=== PATIENT | male | born 1930 | race Caucasian/White ===

== ENCOUNTER 2017-03-29 17:00 | Inpatient (IN) | payer MEDICARE, OTHER ==
[~2017-03-29] VITALS: Ht 177.8 cm; Wt 77.7 kg
--- NOTE | ~2017-03-29 | CON ---
PATIENT'S NAME: KATHARINE BURGER [facility] AGE: 87 Y [address] ROOM: [place] [address] LOCATION: [facility] ADMIT DATE: 03/30/2017 Consultation DISCHARGE DATE: FAMILY PHYSICIAN: Pj Cole ATTENDING PHYSICIAN: Neville Dill DATE OF CONSULTATION: 03/31/2017 REFERRING PHYSICIAN: ELISA WILKERSON MD INFECTIOUS DISEASE CONSULTATION REFERRING PHYSICIAN: Dr. Dill. REASON FOR CONSULTATION: Possible T2-3 diskitis and osteomyelitis. HISTORY OF PRESENT ILLNESS: This is an 87-year-old gentleman with history of atrial fibrillation, chronic kidney disease, diabetes, hypertension, prostate cancer, hypertension, hyperlipidemia, has had some upper back pain for 2 to 3 months, which is getting worse. Denied any trauma or injury, although had some fall several times and was evaluated by Dr. Dill, and with some suspicion for diskitis had a biopsy and culture were done yesterday and then started on IV vancomycin and ciprofloxacin after surgery. The patient denied any fever. Complained of back pain. Denied any numbness or weakness in the lower extremities. Denied any burning on urination. No cough, cough of mucus, no chest pain, no abdominal pain. ID consultation requested for possible disk infection. PAST MEDICAL HISTORY: Atrial fibrillation, chronic kidney disease, diabetes, hypertension, prostate cancer, hyperlipidemia. CURRENT MEDICINES: Antibiotic nieto started on IV vancomycin and Cipro since 2 days ago. ALLERGIES: PENICILLIN CAUSING SEVERE REACTION, WHICH REQUIRED HOSPITALIZATION AT THAT TIME. FAMILY HISTORY: Negative for heart disease. SOCIAL HISTORY: Ex-smoker. PATIENT'S NAME: KATHARINE [facility]GER [facility] AGE: 87 Y [address] ROOM: [address] [address] LOCATION: [facility] ADMIT DATE: 03/30/2017 Consultation DISCHARGE DATE: FAMILY PHYSICIAN: Pj Cole ATTENDING PHYSICIAN: Neville Dill REVIEW OF SYSTEMS: As per HPI. PHYSICAL EXAMINATION: VITAL SIGNS: Blood pressure 146/65, pulse rate 71, respirations 18, temperature 98.3. GENERAL: In mild distress. HEENT: Conjunctivae pink. Sclerae not icteric. NECK: Supple. LUNGS: Clear to auscultation bilaterally. HEART: Regular rhythm and rate. ABDOMEN: Bowel sounds positive. No tenderness or rebound tenderness. BACK AND EXTREMITIES: Upper back has a severe significant tenderness. SKIN: No rash. NEURO: No confusion. LABORATORY DATA: White blood cells 8.0, hemoglobin 8.3, platelet 109. ESR is 81. BUN 27, creatinine 1.3. LFT is okay. CRP is 11.70, normal is less than 0.9. UA done today, positive pyuria, and back tissue aspiration culture done on March 30, 2017, pending. Gram stain, no organisms noted. ASSESSMENT AND PLAN: This is an 87-year-old gentleman with significant T2-3 area pain for 3 months, concern for diskitis or osteomyelitis, and also possible tumor, status post culture and biopsy done on March 30, 2017. Culture is pending. The patient had a penicillin allergy with severe reaction in the past. Also noted to have elevated ESR and CRP too. RECOMMENDATIONS: We will continue IV vancomycin. Pharmacy to dose, and we will change Cipro to Levaquin for dosing convenience, and we will follow culture, and we will follow pathology exam. If culture is positive, then needs 6 to 8 weeks of IV antibiotics. If culture is negative for pathology, positive for inflammation that we would recommend to treat as an empiric treatment for diskitis, and we will follow urine culture too. ID will see in 1 week. If any questions, please give us call at [phone]. So far now, we will continue IV vancomycin, and we will continue levofloxacin p.o. 750 mg every 48 hours. LISA SANTOS MD PATIENT'S NAME: KATHARINE [facility]GER [facility] AGE: 87 Y [address] ROOM: [address] [address] LOCATION: [facility] ADMIT DATE: 03/30/2017 Consultation DISCHARGE DATE: FAMILY PHYSICIAN: Pj Cole ATTENDING PHYSICIAN: Neville Dill/mely /[id number] d: 04/01/17 0234 t: 04/01/17 1119, CONSULTATION REPORT
--- NOTE | ~2017-03-29 | OR ---
PATIENT'S NAME: KATHARINE BURGER [facility] AGE: 87 Y [address] ROOM: [address] [address] LOCATION: [facility] ADMIT DATE: 03/30/2017 OR/Procedure Report DISCHARGE DATE: FAMILY PHYSICIAN: Pj Cole ATTENDING PHYSICIAN: Neville Dill SURGEON: Neville Dill MD LABOR RELATIONS SPECIALIST: DATE OF PROCEDURE: 03/30/2017 PREOPERATIVE DIAGNOSES: 1. Osteomyelitis T2. 2. Diskitis T2-T3 disc space. 3. Query tumor T2 vertebral body. OPERATION PROPOSED AND PERFORMED: 1. Stealth neuronavigation. 2. Transpedicular biopsy of T2 vertebral body. 3. Culture and sensitivity of the lesion in the T2 vertebral body. 4. Biopsy of T2 vertebral body using the stealth neuronavigational system, transpedicular biopsy to stealth neuronavigation system. 5. Specimens taken for culture and sensitivity using the correct biopsy needle for the biopsy and flushing through the needle for some of the culture sensitivity. DESCRIPTION OF PROCEDURE: Under general anesthesia, the patient was positioned prone. The neck and upper thorax were prepped and draped in the usual fashion. A midline linear incision was then carried out extending from the spinous process of T1-T3. The fascia was incised on either side of the midline and the paraspinal muscles were reflected from the lamina of T1-T2-T3 bilaterally. The O-arm clamp was then put on T1 spinous process. We then scanned the patient and this showed that we were covered where we wanted to be. Next, the patient was registered and scanned and after this was done, we then identified the entry point on the left side of the T2 pedicle and on the stealth neuronavigational system of the O-arm, we used the pedicle finder to advance through the pedicle to the vertebral body and following that, we then used the drill and tap also through the pedicle to the vertebral body using the neuronavigational system, the O-arm and after this, we then got the Booker needle tapped it through the hole we had created into the vertebral body and we were able to get specimens that way. After we had achieved this, we then went ahead and got Q-tips, which we passed through the pedicle to the vertebral body and used that for culture. Cultures both aerobic and anaerobic. Then we irrigated the Booker needle and sent the fluid for culture and sensitivity and Gram stain. After we had done this, we then gave the patient 1 g of vancomycin and 400 mg of Cipro IV. The wound was then irrigated with bacitracin irrigation and closed in layers. First the fascia, PATIENT'S NAME: KATHARINE BURGER [facility] AGE: 87 Y [address] ROOM: [place] [address] LOCATION: [facility] ADMIT DATE: 03/30/2017 OR/Procedure Report DISCHARGE DATE: FAMILY PHYSICIAN: Pj Cole ATTENDING PHYSICIAN: Neville Dill the subcutaneous tissue, and finally the skin. The patient tolerated the procedure well and was taken to the recovery room. MD PRASANNA HOLLEY/mely /[id number] d: 03/30/17 2147 t: 04/18/17 1609, OPERATIVE SUMMARY
--- NOTE | ~2017-03-29 | CON ---
PATIENT'S NAME: KATHARINE BURGER [facility] AGE: 87 Y [address] ROOM: [place] [address] LOCATION: [facility] ADMIT DATE: 03/30/2017 Consultation DISCHARGE DATE: FAMILY PHYSICIAN: Pj Cole ATTENDING PHYSICIAN: Neville Dill REFERRING PHYSICIAN: ELISA WILKERSON MD CHIEF COMPLAINT: Back pain. HISTORY OF PRESENT ILLNESS: An 87-year-old gentleman with a past medical history of prostate cancer, status post radiation treatment; chronic kidney disease; multiple urinary tract infections in the past; history of paroxysmal atrial fibrillation, on oral anticoagulation, presented to the outside facility about 2 weeks ago with back pain. Imaging studies were undertaken, which did reveal a possibility of a tumor in the back. There was also some concern about diskitis and osteomyelitis. He was referred here for a 2nd opinion. He was admitted under neurosurgical care. Today, imaging-guided biopsy of the concerned area has been undertaken. On my encounter, he is complaining of back pain. He denied any headache, any dizziness, any trouble with the eyes, any chest pain, any shortness of breath, any abdominal pain, but did endorse having leg swelling. REVIEW OF SYSTEMS: All other systems were reviewed and were negative except what is mentioned in the HPI. PAST MEDICAL HISTORY: 1. Chronic atrial fibrillation, on long-term anticoagulation with Coumadin for a long time. 2. Chronic kidney disease, stage 3. 3. Type 2 diabetes mellitus. 4. Hypertension. 5. History of DVTs, on long-term anticoagulation with Coumadin. 6. Prostate cancer, status post radiation treatment. 7. Anemia of chronic disease. 8. Osteoarthritis. 9. Generalized hypertension. 10. Hyperlipidemia. 11. Gastroesophageal reflux disease. 12. Questionable history of parkinsonism. 13. Recurrent urinary tract infections. CURRENT MEDICATIONS: Please see MAR. PATIENT'S NAME: KATHARINE BURGER [facility] AGE: 87 Y [address] ROOM: [place] [address] LOCATION: [facility] ADMIT DATE: 03/30/2017 Consultation DISCHARGE DATE: FAMILY PHYSICIAN: Pj Cole ATTENDING PHYSICIAN: Neville Dill FAMILY HISTORY: Negative for heart disease or stroke. SOCIAL HISTORY: He is a . Lives by himself in a house he built himself. Distant history of smoking. He uses a cane at home to be around. PHYSICAL EXAMINATION: VITAL SIGNS: Today show blood pressure 114/55, respiratory rate of 16, pulse of 63, and temperature of 98.5. GENERAL: In no acute distress. Alert and oriented x3. HEENT: Head: Atraumatic, normocephalic. Eyes: Nonicteric. No pallor. Oropharynx: Moist mucous membranes. CARDIOVASCULAR: Irregular, variable S1, normal S2. No murmurs, gallops, or rubs. LUNGS: Clear to auscultation bilaterally. ABDOMEN: Soft, nontender, nondistended. Bowel sounds are present. EXTREMITIES: +2 extremity edema bilaterally. SKIN: Biopsy site covered with surgical dressing. Sacral decubitus ulcer present on admission. LAB WORK: Done showed blood glucose level of 204 on Accu-Check. Serum creatinine level, which was done yesterday, was 1.3 with a GFR of 52. CURRENT MEDICATIONS: 1. Coumadin. 2. Vancomycin. 3. Terazosin. 4. Polyethylene glycol. 5. Multivitamins. 6. Megestrol acetate. 7. Pantoprazole. 8. Glipizide 2.5 mg daily. 9. Sertraline 50 mg q.h.s. 10. Metoprolol 25 mg b.i.d. p.o. 11. Lovastatin 20 mg h.s. 12. Lisinopril 20 mg b.i.d. 13. Ciprofloxacin. 14. Sinemet. 15. Bicalutamide. 16. Percocet. 17. Morphine. ASSESSMENT/PLAN: PATIENT'S NAME: KATHARINE BURGER [facility] AGE: 87 Y [address] ROOM: [place] [address] LOCATION: [facility] ADMIT DATE: 03/30/2017 Consultation DISCHARGE DATE: FAMILY PHYSICIAN: Pj Cole ATTENDING PHYSICIAN: Neville Dill 1. Type 2 diabetes, on glipizide, well controlled at this point. I would recommend using the glipizide and starting a sliding scale insulin to have more control of the blood glucose levels as well as avoiding hypoglycemia. 2. Chronic kidney disease. Given that he is getting IV vancomycin at this point, we will be watchful of the creatinine levels. 3. Atrial fibrillation, currently in atrial fibrillation with controlled ventricular rates. I would recommend starting Coumadin as soon as possible. 4. Deep venous thrombosis. We would recommend starting Coumadin as soon as possible per Neurosurgery. 5. Hypertension, stable at this point. Continue home medications. 6. Anemia of chronic disease. 7. Hyperlipidemia. 8. Gastroesophageal reflux disease. 9. Diskitis/osteomyelitis. Currently, on Cipro and vancomycin. Infectious Disease consultation had been obtained, and they have switched the medication to the Levaquin and vancomycin. Further determination of the antibiotics will be done based on the cultures. If cultures were to be negative and per ID recommendation, it will be treated with vancomycin and ciprofloxacin. 10. The patient is a DNR/DNI. MD MARYAM GHOTRA/mely /[id number] d: 03/31/17 2301 t: 04/01/17 0929, CONSULTATION REPORT
--- NOTE | ~2017-03-29 | DS ---
PATIENT'S NAME: KATHARINE BURGER [facility] AGE: 87 Y [address] ROOM: [id number] [place], [place] [address] [place] [facility] [place]: 03/30/2017 Discharge Summary DISCHARGE DATE: 04/10/2017 FAMILY PHYSICIAN: Pj Cole ATTENDING PHYSICIAN: Neville Dill HOSPITAL COURSE: This is an 87-year-old male, who was admitted with a primary complaint of severe upper thoracic pain with no radicular component to the pain and no gross weakness of his upper or lower extremities. Referable to the pain, investigations were carried out included an MRI of his thoracic spine. It did show some hyperintense lesions in the body of T2 and also in the T2-T3 disk space. The relevant portion of his past medical history, he did have a history of CA of the prostate, and also that he has had a history of falls recently. He was consequently brought into the hospital to determine whether what we were seeing at T2 was a tumor, and if it was then he will be back to Dr. Mesa for subsequent radiation. The other alternative there was whether this was diskitis with accompanying osteomyelitis. He was taken to the operating room day after he arrived in the hospital and had a transpedicular biopsy and culture of the T2 vertebral body. This was carried out using the O-arm and stealth, and the tissues were then sent to the path lab as well as to the laboratory for cultures. The cultures came back negative. The pathology also did not show any evidence of tumor. There was almost suggestive of a previous hemorrhage. However, I did not expect this to involve the disk space itself. He was seen in consultation by Infectious Disease consultants, who felt that this could also possibly be diskitis. He was put on vancomycin and Cipro immediately after the biopsy was done. The Cipro was discontinued, and he was put on Levaquin in addition by the Infectious Disease consultants. Eventually, the Levaquin was also discontinued especially as cultures did not grow any organisms, and he was left on only vancomycin. Plan was to continue treating him with vancomycin empirically. He did feel better. We were able to get him out of bed and get him ambulatory. He did have quite a bit of incisional pain and spasms. He was given some antispasm medications primarily Valium, which did give him some relief. He was also seen in consultation by Dr. Cabrera, who felt that he was a candidate for rehab, and while he was in the hospital, he has been taken care of by the hospitalist group. Later on, he developed urinary incontinence, and as a result of this, he was seen by Dr. Bonner of the urology service, who felt that the part of his problem was the fact that he was not circumcised, and that he will need to be circumcised, so he was taken to the operating room by Dr. Bonner and had a circumcision done. He was eventually transferred to the rehab unit. At which time, his pain had not completely subsided but was getting better. FINAL DIAGNOSES: 1. Query diskitis. PATIENT'S NAME: KATHARINE BURGER [facility] AGE: 87 Y [address] ROOM: [place] [address] [place] [facility] [place]: 03/30/2017 Discharge Summary DISCHARGE DATE: 04/10/2017 FAMILY PHYSICIAN: Pj Coel ATTENDING PHYSICIAN: Neville Dill 2. Compression fractures at T2. MD PRASANNA HOLLEY/mely /[id number] d: 04/19/17 0201 t: 05/06/17 1444, DISCHARGE SUMMARY
--- NOTE | ~2017-03-29 | CON ---
PATIENT'S NAME: KATHARINE BURGER [facility] AGE: 87 Y [address] ROOM: [place] [address] LOCATION: [facility] [place] ADMIT DATE: 03/30/2017 Consultation DISCHARGE DATE: FAMILY PHYSICIAN: Pj Cole ATTENDING PHYSICIAN: Neville Dill DATE OF CONSULTATION: 04/03/2017 REFERRING PHYSICIAN: ELISA WILKERSON MD HISTORY OF PRESENT ILLNESS: The patient is an 87-year-old male, admitted secondary to severe back pain. The patient has significant past history of prostate cancer, status post radiation therapy, and multiple urinary tract infections. Reason for consultation is persistent urinary incontinence which the patient reports has been present for the past 2 years. The patient apparently has seen Dr. Lopez in the past and now sees Dr. Locke for his prostate cancer. The patient has been treated with Lupron injections and currently is on Casodex. Again, he complains of persistent urinary incontinence with persistent dribbling. Because of this, the patient wears diapers. With his persistent dribbling, I do not believe anticholinergic medications would work. I discussed a possibility of placing a permanent Rose catheter. PAST MEDICAL HISTORY: Significant for chronic atrial fibrillation; renal insufficiency, stage 3; type 2 diabetes; hypertension; history of DVT; prostate cancer, again status post radiation therapy; anemia; osteoarthritis; hypertension; hyperlipidemia; GERD; and recurrent urinary tract infections. MEDICATIONS: 1. Casodex. 2. Coumadin. 3. Hytrin. 4. Florastor. 5. Lopressor. 6. Megace. 7. Mevacor. 8. MiraLAX. 9. Zestril. 10. Protonix. 11. Sinemet. 12. Welchol. 13. Zoloft. SOCIAL HISTORY: The patient is a nonsmoker, but has a distant history of smoking in the past. PATIENT'S NAME: KATHARINE BURGER [facility] AGE: 87 Y [address] ROOM: [place] [address] LOCATION: [facility] [place] ADMIT DATE: 03/30/2017 Consultation DISCHARGE DATE: FAMILY PHYSICIAN: Pj Cole ATTENDING PHYSICIAN: Neville Dill No history of alcohol abuse. REVIEW OF SYSTEMS: Significant for hypertension, abdominal pain, joint and back pain. PHYSICAL EXAMINATION: GENERAL: An elderly male, lying in bed. Complains of significant discomfort with movement. EYES: Extraocular motion intact. LUNGS: Clear bilaterally. CARDIAC: Irregular rhythm. ABDOMEN: Soft, nontender, and normoactive bowel sounds throughout. NEURO: Grossly intact. : The patient has a buried phallus with a small opening that actually accesses the accessory bladder. When squeezed, urine squirts out. 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 PLAN: We will take to OR in the future for dilatation and possible circumcision revision to correct his buried penis. MD YAMILEX LANGE/mely /[id number] d: 04/04/176 t: 04/06/17 1512, CONSULTATION REPORT
--- NOTE | ~2017-03-29 | CON ---
PATIENT'S NAME: KATHARINE BURGER [facility] AGE: 87 Y [address] ROOM: [place] [address] LOCATION: [facility] ADMIT DATE: 03/30/2017 Consultation DISCHARGE DATE: FAMILY PHYSICIAN: Pj Cole ATTENDING PHYSICIAN: Neville Dill DATE OF CONSULTATION: 03/31/2017 REFERRING PHYSICIAN: ELISA WILKERSON MD A consult for Dr. Dill. This is an 87-year-old gentleman, who lives alone and takes care of his own needs, is now status post; 1. Stealth neuronavigation. 2. Transpedicular biopsy of T3 body. 3. Culture and sensitivity of T3 lesion. 4. Biopsy of T3 vertebral body. 5. Taking biopsy specimen for culture and sensitivity using a correct needle for biopsy and pushing through the needle done on 03/30/2017, details on record with the diagnosis as following;. a. Osteomyelitis of T2. b. Diskitis T2-3 space. c. Query (?) tumor of the T3. MEDICAL HISTORY: 1. CA prostate with radiation and followup. 2. Chronic kidney disease. 3. UTI, multiple, on and off. 4. Paroxysmal atrial fibrillation. 5. Chronic back pain. 6. Hypertension. 7. History of DVT. 8. Anemia of chronic disease. 9. Osteoarthritis. 10. Dyslipidemia. 11. Reflux gastric disease. 12. Questionable Parkinson. PHYSICAL EXAMINATION: GENERAL: At the present time alert, oriented x3, hard of hearing. VITAL SIGNS: Blood pressure 140/58, temperature 98.1, pulse 74, and respirations 16. He is 5 feet and 10 inches and weighs 77.7 kg. NEURO: He can follow instructions well. Cranial nerves II through XII are within normal limits. Can move all 4 well. Muscle strength is about 4- to 4/5 throughout. Good bowel and bladder control. Deep tendon reflex 1+ PATIENT'S NAME: KATHARINE BURGER [facility] AGE: 87 Y [address] ROOM: [address] [place] [id number] LOCATION: [facility] ADMIT DATE: 03/30/2017 Consultation DISCHARGE DATE: FAMILY PHYSICIAN: Pj Cole ATTENDING PHYSICIAN: Badejo,Neville E throughout. Babinski is equivocal. MEDICATIONS: He is on the following medications: 1. Coumadin. 2. Fentanyl. 3. Insulin aspartate, mild scale. 4. Glucagon. 5. Dextrose. 6. Glucose. 7. NaCl 0.9%. 8. Vancomycin. 9. Levaquin. 10. Hytrin. 11. MiraLax. 12. Theravite. 13. Megace. 14. Welchol. 15. Protonix. 16. Zoloft. 17. [place]-3. 18. Metoprolol. 19. Mevacor. 20. Lisinopril. 21. Carbidopa. 22. Casodex. 23. Percocet. 24. Morphine sulfate. 25. Fentanyl. 26. Glipizide. 27. Cipro. He can ambulate at best at the present time about 45 feet x2 with contact guard assist; minimal assistance, slow; and keeps his head down with bent forward gait. I believe this gentleman would benefit from intensive rehabilitation of about 2 to 3 weeks. Aiming to discharge him on modified independent and follow on outpatient basis. We will take him as soon as we have an opening. Thank you for this referral. All the above was explained to him in detail. He verbalized understanding and in agreement. PATIENT'S NAME: KATHARINE BURGER [facility] AGE: 87 Y [address] ROOM: [place] [address] LOCATION: [facility] ADMIT DATE: 03/30/2017 Consultation DISCHARGE DATE: FAMILY PHYSICIAN: Pj Cole ATTENDING PHYSICIAN: Neville Dill MD LAURIE SIMPSON/lawrencel /[id number] d: 04/01/171904 t: 04/03/17 0850, CONSULTATION REPORT
--- NOTE | ~2017-03-29 | OR ---
PATIENT'S NAME: KATHARINE BURGER [facility] AGE: 87 Y [address] ROOM: [place] [address] [place] [facility] [place] DATE: 03/30/2017 OR/Procedure Report DISCHARGE DATE: FAMILY PHYSICIAN: Pj Cole ATTENDING PHYSICIAN: Neville Dill SURGEON: Dayday Kuhn MD [employer] WARRANTY ADMINISTRATOR: DATE OF PROCEDURE: 04/07/2017 PREOPERATIVE DIAGNOSIS: 1. Buried penis. 2. Urinary incontinence. POSTOPERATIVE DIAGNOSIS: 1. Buried penis. 2. Urinary incontinence. PROCEDURE PERFORMED: Circumcision revision. ANESTHESIA: General mask. COMPLICATIONS: None. INDICATION FOR PROCEDURE: The patient is an 87-year-old male complaining of urinary incontinence for the past two years. On physical examination, he is noted to have a buried penis with a very tight opening. This resulted in fluid retention around his buried penis. DETAILS OF PROCEDURE: After informed consent was obtained, the patient was taken to the operating room. He was placed in a supine position. A general mask anesthetic applied. The groin area was prepped and draped in normal sterile fashion. I then used a Indu clamp to dilate the scarred tissue, at which point I could visualize his buried penis. I continued dilatation. I then performed a dorsal slit which allowed me to retract the skin to be on back of the glans. I then reapproximated the skin with interrupted 3-0 chromic sutures in a vertical mattress fashion. Once this was completed, the incision was dressed with antibiotic ointment and gauze. The patient tolerated his procedure well and was transferred to recovery room in good condition. DAYDAY KUHN MD PATIENT'S NAME: KATHARINE BURGER [facility] AGE: 87 Y [address] ROOM: [place] [address] LOC[place]: [facility] [place]MIT DATE: 03/30/2017 OR/Procedure Report DISCHARGE DATE: FAMILY PHYSICIAN: Pj Cole ATTENDING PHYSICIAN: Neville Dill/lawrencel /[id number] CC: MICHAEL Peacock d: 04/07/17 1601 t: 04/27/17 1442, OPERATIVE SUMMARY
[~2017-03-29 17:00] MED LIST: ACETAMINOPHEN650 M2 PO; B&O 60MG SUPPOS60 MG R; CASODEX50 MG PO; CENTRUM SILVER1 TAB PO; CORTENEMA100 MG/60 R; COUMADIN ** IA5 MG PO; COUMADIN **IA2.5 MG PO; CPAP INH; DURAGESIC 25MC25 MCG TOP; FISH OIL300 MG PO; FLOMAX0.4 MG PO; GLUCAGON/GLUCAGE1 MG SUB-Q; GLUCOSE1 EACH PO; GLUCOTROL XL2.5 MG PO; HYDROCHLOROTH12.5 M1; HYTRIN **IA 9/2 MG PO; LANTUS100 UNIT/1 SUB-Q; LASIX20 M1 PO; LOMOTIL 2.5-0.1 EACH PO; LOPRESSOR50 MG PO; LOVASTATIN20 MG PO; MEGACE40 MG PO; MEGESTROL ACETA20 MG PO; MIRALAX17 GM PO; NORCO 5-325 TA1 EACH PO; NORVASC10 MG PO; NOVOLOG100 UNIT/M SUB-Q; PRILOSEC20 MG PO; PROCERA PO; SINEMET 25-1001 EACH PO; ULTRAM50 MG PO; WELCHOL 625MG625 MG PO; ZESTRIL10 MG PO; ZESTRIL40 MG PO; ZOLOFT50 MG PO
[2017-03-30 19:30] LABS: CREATININE 1.2 mg/dL (0.6-1.3)
--- NOTE | 2017-03-31 02:47 | NUR ---
Shift Summary: Patient complains of pain with any movement or being touched and at rest. Gave two norco at a time. Has had a couple doses of 2mg Morphine IV. Patient has multiple skin problems. Skin tear to left lower arm. Purple, non-blanching skin to right buttock surrounded by red blanchable skin. Bruises to arms. Red skin to tip of toes. Excoriated skin to scrotum with skin breakdown. WOC to see patient. Reinforced saturated dressing to cervical spine. Patient continously urinates. Wearing a brief. Incontinent of small BM at beginning of shift. Refused all of his nightime meds. Able to swallow pills whole without difficulty. Wore his CPAP while sleeping.
[2017-03-31 06:15] LABS: CREATININE 1.3 mg/dL (0.6-1.3)
--- NOTE | 2017-03-31 10:00 | NUR ---
Introduced self/role to patient and his daughter Ruthie whom lives out of state. Plan is for patient to return home to [place]. They have [facility] coming Wednesday-Wednesday. Currently working on getting a hospital bed for home, just need to chart picker the script from the doctor. Family have been staying with him. Feeling like they may need to hire some additional help. Provided her a list of personal care duty providers in this area. At this time she could not think of any other needs. Has all the other DME already. Added my name to the marker board, will continue to follow.
[2017-03-31 15:51] LABS: BASOPHIL % 0.1 %; EOSINOPHIL # 0.1 K/uL (0.0-0.5); EOSINOPHIL % 1.8 %; HEMATOCRIT 27.3 % (33.0-50.0); HEMOGLOBIN 8.3 g/dL (11.0-16.0); IMMATURE GRANULOCYTE # 0.1 K/uL (0.0-0.3); IMMATURE GRANULOCYTE % 0.9 %; LYMPHOCYTE # 0.8 K/uL (0.8-4.0); LYMPHOCYTE % 10.1 %; MCH 29.5 pg (27.0-34.0); MCHC 30.4 gm/dL (32.0-36.5); MCV 97.2 fl (83.0-98.0); MONOCYTE # 0.7 K/uL (0.0-1.0); MPV 10.6 fl (9.4-12.4); NEUTROPHIL # (ANC) 6.2 K/uL (1.4-9.0); NEUTROPHIL % 78.1 %; NRBC % 0 /100WBC (0-0.00); PLATELET COUNT 109 K/uL (150-450); RBC 2.81 M/uL (3.50-5.50); RDW-CV 15.8 % (11.9-14.6)
[2017-03-31 16:12] LABS: ALK PHOS 63 IU/L (33-138); ANION GAP 11.9 (10.0-19.0); AST 16 IU/L (10-40); BLOOD UREA NITROGEN 27 mg/dL (6-24); CALCIUM 7.5 mg/dL (8.5-10.5); CHLORIDE 109 mMol/L (96-110); CO2 22 mMol/L (22-32); CREATININE 1.3 mg/dL (0.6-1.3); ESTIMATED GFR (MDRD EQUATION) 52; POTASSIUM 4.9 mMol/L (3.7-5.1); SODIUM 138 mMol/L (135-145); TOTAL BILIRUBIN 0.3 mg/dL (0.0-1.5); TOTAL PROTEIN 5.3 g/dL (6.0-8.4)
[2017-03-31 16:18] LABS: ALBUMIN 1.9 gm/dL (3.5-5.0); ALT < 10 IU/L (12-78)
--- NOTE | 2017-03-31 17:12 | NUR ---
Significant Event: Pt has been in generalized pain most of the day, especially with movement. Percocet given @ 1630 for 6/10 pain. CSM checks WNL. Pt needs to be re-oriented to place and time. Incontinent of urine and BM. +2 pitting edema to bilateral lower extremities. 1+ edema to left hand. Pressure ulcer to rt buttocks. Excoriated scrotum, alovesta cream applied. Skin tear to left forearm, see integumentary assessment for further details. Incision to upper midline spine with theresa intact. Dressing changed today, clean dry and intact. Pt to be turned and brief changed q2h. Follow up: Pain and repositioning.
--- NOTE | 2017-03-31 18:38 | NUR ---
Duragesic patch intact to rt chest
--- NOTE | 2017-03-31 19:00 | NUR ---
I reviewed and approve of charting by Jeffy Garrison RN
--- NOTE | 2017-04-01 04:04 | NUR ---
Shift Summary: Patient is a two assist to ambulate short distance. Last percocet was at 2008. Patient takes pills whole, 2-3 at a time. Dressing to upper back is free from drainage. Patient has continous dribbling incontinent urine. Scrotum excoriated. Has good appetite when fed by his daughter. Wears CPAP at night. Edema to upper legs.
[2017-04-01 06:10] LABS: BASOPHIL % 0.1 %; EOSINOPHIL # 0.1 K/uL (0.0-0.5); EOSINOPHIL % 1.9 %; HEMATOCRIT 25.4 % (33.0-50.0); IMMATURE GRANULOCYTE % 0.6 %; LYMPHOCYTE % 14.7 %; MCV 97.3 fl (83.0-98.0); MONOCYTE # 0.7 K/uL (0.0-1.0); MONOCYTE % 10.2 %; MPV 10.8 fl (9.4-12.4); NEUTROPHIL # (ANC) 4.8 K/uL (1.4-9.0); NEUTROPHIL % 72.5 %; NRBC % 0 /100WBC (0-0.00); RBC 2.61 M/uL (3.50-5.50); RDW-CV 15.9 % (11.9-14.6); WBC 6.7 K/uL (4.0-11.0)
[2017-04-01 06:12] LABS: HEMOGLOBIN 7.7 g/dL (11.0-16.0); MCH 29.5 pg (27.0-34.0); MCHC 30.3 gm/dL (32.0-36.5); PLATELET COUNT 85 K/uL (150-450)
[2017-04-01 06:20] LABS: INR - (THERAPEUTIC) 1.03 (0.92-1.07); PROTIME 10.8 SECONDS (9.8-11.4)
[2017-04-01 06:22] LABS: ANION GAP 12.6 (10.0-19.0); BLOOD UREA NITROGEN 23 mg/dL (6-24); CALCIUM 7.6 mg/dL (8.5-10.5); CHLORIDE 112 mMol/L (96-110); CO2 21 mMol/L (22-32); CREATININE 1.1 mg/dL (0.6-1.3); ESTIMATED GFR (MDRD EQUATION) > 60; POTASSIUM 4.6 mMol/L (3.7-5.1); SODIUM 141 mMol/L (135-145)
--- NOTE | 2017-04-01 12:15 | NUR ---
Left a message for Keren on GIRP inquiring about beds. 1230 Met with daughter in the office. Student Perfume Maker also present Sherry. Her family upset her and she needed some encouragement and emotional support. She stated he has always been very independent and a "self made man". When GIRP assessed him today he thought they were talking about a long term. He then wanted out of here. Daughters goal is to get dad better then back home. He has the resources to hire help. She would like her brother to come and explained GIRP to patient denise. If [facility] isn't an option due to bed then [facility] might work. Patient was just there, she talked to a Day today. Daughter isn't sure how many days he has. She stated they may consider if the IV was BID but probably not if it was once a day. Cultures still pending so won't know medication regimen for awhile. Gave her emotional support. Can make referral to [facility] once we better know his medical plan and needs. Let her know I was off tomorrow but someone else would be following. She left for lunch and some time to herself. She has the support of her daughter, explained she needed to take care of herself too. We won't discharge her dad until we have a safe plan.
--- NOTE | 2017-04-01 16:22 | NUR ---
Significant Event: PT ALERT. UP IN THE RECLINER THIS SHIFT. RETURNED TO BED AFTER LUNCH. INC OF URINE X 2. SMALL BM. IV VANCO INFUSING PER MIDLINE IN RT UPPER ARM. EVALUATED FOR GIRP TODAY. NO BEDS AT THIS TIME. TAKES MEDS WHOLE WITH LIQUID. IV SALINE LOCKED DRESSING TO NECK INTACT. ATE 50% OF MEALS BY SELF. Follow up:
--- NOTE | 2017-04-02 04:35 | NUR ---
Patient is alert and can be forgetful/confused at times, dressing to spine is clean dry and intact, has pain with movement, has rested well tonight, repositioned and changed q2 hours, is constantly incontinent, scrotum is very excoriated and red needs barrier cream applied frequently, also has a sore to right buttock that also need barrier cream, 2 assist for all transfers and repositioning, has NACL running at 40ml/hr, BG was 227 so recieved 2 units of insulin, plans to go to rehab when availble, needs a urology consult and a swallowing study had trouble with pm pills.
[2017-04-02 06:17] LABS: BASOPHIL % 0.2 %; EOSINOPHIL # 0.2 K/uL (0.0-0.5); EOSINOPHIL % 2.7 %; HEMATOCRIT 25.3 % (33.0-50.0); IMMATURE GRANULOCYTE # 0.1 K/uL (0.0-0.3); IMMATURE GRANULOCYTE % 0.9 %; LYMPHOCYTE # 1.2 K/uL (0.8-4.0); LYMPHOCYTE % 18.4 %; MCH 29.3 pg (27.0-34.0); MCHC 30.8 gm/dL (32.0-36.5); MCV 95.1 fl (83.0-98.0); MONOCYTE # 0.6 K/uL (0.0-1.0); MONOCYTE % 8.6 %; MPV 10.9 fl (9.4-12.4); NEUTROPHIL # (ANC) 4.4 K/uL (1.4-9.0); NEUTROPHIL % 69.2 %; NRBC % 0 /100WBC (0-0.00); PLATELET COUNT 93 K/uL (150-450); RBC 2.66 M/uL (3.50-5.50); RDW-CV 15.8 % (11.9-14.6); WBC 6.4 K/uL (4.0-11.0)
[2017-04-02 06:21] LABS: HEMOGLOBIN 7.8 g/dL (11.0-16.0)
[2017-04-02 06:41] LABS: ESTIMATED GFR (MDRD EQUATION) > 60
--- NOTE | 2017-04-02 14:04 | NUR ---
Significant Event: PT ALERT BUT CONFUSED AT TIMES. UP WITH PHYSICAL THERAPY TO AMBULATE IN THE ROOM. SMALL BM THIS SHIFT. CONT TO BE INC OF URINE. BLADDER SCAN SHOWED 38CC THIS AM. PERCOCET GIVEN AT 1349 FOR PAIN. DRESSING TO NECK INTACT. DAUGHTER HERE AND HELPED THE PT EAT. AWAITING PLACEMENT. Follow up:
--- NOTE | 2017-04-02 18:52 | NUR ---
Significant Event: took over patient care at 1445. patient repositioned to r) side at 1700 with 2 assist, heels elevated off bed with pillows. had vanco trough prior to 1600 dose of vancomycin. daughter at bedside. Follow up:
--- NOTE | 2017-04-03 05:52 | NUR ---
Significant Event: Dressing has small drainage. CSM WNL. Incontinent of urine. Repositioned. Pecocet at 0329. On room air. Refused CPAP. Accu check. [facility] vs [place] [facility]. Hypertensive, but better now. Follow up:
[2017-04-03 06:08] LABS: CREATININE 0.9 mg/dL (0.6-1.3); ESTIMATED GFR (MDRD EQUATION) > 60
[2017-04-03 13:10] LABS: INR - (THERAPEUTIC) 1.68 (0.92-1.07); PROTIME 17.7 SECONDS (9.8-11.4)
--- NOTE | 2017-04-03 14:52 | NUR ---
A-SCREENED D/T LOS ADMITTED FOR DISKITIS T2-T3 DISK SPACE, OSTEOMYELITIS T2, QUERY OF TUMOR AT T2. HT: 70 IN. WT: 77.7 KG. BMI: 24.5 LABS: NA 141, K+ 4.6, GLU 86, BUN 23, ROUTE INSPECTOR 0.9, ALB 1.9, CRP 11.7 MEDS: MVI, MEGACE, PROTONIX, SINEMET, VANCOMYCIN, LEVAQUIN, MIRALAX, PERCOCET, DILAUDID, DURAGESIC, NOVOLOG (MILD SS). DIET RX: REGULAR. PO INTAKE 50%. PER RN CHARTING, PT DOES BETTER WITH DAUGHTER HELPING TO FEED HIM. PT USES WEIGHTED SILVERWARE. VISITED W/ PT AND PT'S DAUGHTER. PT REPORTS THAT HIS APPETITE IS OK. WHEN ASKED IF HE TAKES NUTRITION SUPPLEMENTS AT HOME (BOOST OR ENSURE), PT REPORTS THAT HE HAS A CASE OF BOOST AT HOME, BUT HE HAS NOT TRIED IT. PT WAS AGREEABLE TO TRYING CHOCOLATE ENSURE BID. PT'S DAUGHTER ASKED IF HE COULD HAVE ONE NOW, PT HAS NOT FELT LIKE EATING LUNCH. A CHOCOLATE ENSURE WAS GIVEN TO THE PT FROM THE [facility]. EST NUTR NEEDS: 4489-7545 KCALS (25-30 KCALS/KG) 78-85 GM PROTEIN (1.0-1.1 GM/KG) 1 ML FLUID/KCAL D-AT NUTRITION RISK W/INDEQUATE ORAL INTAKE AT TIMES R/T POOR APPETITE, RECENT SURGERY AEB INTAKE RECORDS, PT AND FAMILY REPORT. I-START CHOCOLATE ENSURE ENLIVE BID AT BRK AND LUNCH M/E-GOAL: PO INTAKE OF MEALS AND SUPPLEMENT >/=50% BY NEXT F/U 1)F/U PO INTAKE, SUPPLEMENT, AND POC IN 3-5 DAYS 2)ASSIST NEEDED
--- NOTE | 2017-04-03 16:41 | NUR ---
Significant Event: Pt transfered from 3N around 1545. 2 assist with ambulation to br. Has a swollen penis/scrotum. Red groin and red spot upper right buttock. Dressing to upper back d/i. Midline to right arm. Follow up:
--- NOTE | 2017-04-03 17:29 | NUR ---
Significant Event: Pt Aox3, confused at times. VSS, CSM WNL. Neuro WNL. IV to right upper arm, midline, intact. Up with two assist. Reposition q 2 hr, apply moisture barrier. Elevate heels. Percocet for pain. Takes PO well, needs weighted silverware. Incontinent of urine. Dr. Bonner to do procedure on wednesday. Encourage activity, IS, CDB&T. Neck dressing has small amt of drainage. Follow up:
[2017-04-04 05:56] LABS: BASOPHIL % 0.2 %; EOSINOPHIL # 0.2 K/uL (0.0-0.5); EOSINOPHIL % 2.6 %; HEMATOCRIT 25.5 % (33.0-50.0); IMMATURE GRANULOCYTE % 0.7 %; LYMPHOCYTE % 16.9 %; MCH 29.7 pg (27.0-34.0); MCHC 31.4 gm/dL (32.0-36.5); MCV 94.8 fl (83.0-98.0); MONOCYTE # 0.3 K/uL (0.0-1.0); MONOCYTE % 4.8 %; MPV 11.2 fl (9.4-12.4); NEUTROPHIL # (ANC) 4.5 K/uL (1.4-9.0); NEUTROPHIL % 74.8 %; NRBC % 0 /100WBC (0-0.00); PLATELET COUNT 95 K/uL (150-450); RBC 2.69 M/uL (3.50-5.50); RDW-CV 15.9 % (11.9-14.6)
[2017-04-04 06:03] LABS: INR - (THERAPEUTIC) 1.63 (0.92-1.07); PROTIME 17.2 SECONDS (9.8-11.4)
[2017-04-04 06:07] LABS: ANION GAP 12.2 (10.0-19.0); BLOOD UREA NITROGEN 13 mg/dL (6-24); CALCIUM 7.8 mg/dL (8.5-10.5); CHLORIDE 114 mMol/L (96-110); CO2 20 mMol/L (22-32); CREATININE 0.9 mg/dL (0.6-1.3); ESTIMATED GFR (MDRD EQUATION) > 60; MAGNESIUM 1.5 mg/dL (1.8-2.6); POTASSIUM 4.2 mMol/L (3.7-5.1); SODIUM 142 mMol/L (135-145)
--- NOTE | 2017-04-04 06:58 | NUR ---
Significant Event: Pt Up with 2 assist. Periarea excoriated and needs briefs changed q 2 hours. Skin tear protocol to left forearm. Dressing to posterior neck intact. Percocet given x 2 with the last dose at 0600 this morning. VSS, afebrile. Midlide IV to right arm saline locked. TAkes pills well with just water. Cont IV Vanco. Follow up: Nickolas coles on in AM.
--- NOTE | 2017-04-04 16:10 | NUR ---
Significant Event: Pt c/o intermittent neck pain, percocet last given around 1330 with some relief. Dressing to neck/back d/i. Up with 1 assist to the br. Scrotum/penis continue to be swollen and generalized swelling noted throughout body. Up in chair x2. Pt is in AFIB/irregular heartbeat. Skin tear left arm and has a pink/purple spot to right upper buttock. Follow up:
--- NOTE | 2017-04-05 04:48 | NUR ---
Significant Event: Patient alert and oriented X3, forgetful at times. Vitals stable and on room air. Incision to upper back covered with island dressing, shadow drainage noted. Midline to R) upper arm saline locked with intermittent vanco. ADA diet. ACHS accuchecks. Up with 1-2 person assist, walker and gait belt. PT/OT on board. Fentanyl patch to L) chest. INtact. Aloev esta to buttocks and groin. Incontinenet at times. BM this shift. Refused miralax. 1 tab percocet last at 0355. Relief noted. Very delicate skin. Skin tear to L) arm. CHange every day. GIRP when bed is available. Follow up: Monitor pain
[2017-04-05 06:18] LABS: BASOPHIL % 0.2 %; EOSINOPHIL # 0.2 K/uL (0.0-0.5); EOSINOPHIL % 3.3 %; HEMATOCRIT 25.6 % (33.0-50.0); IMMATURE GRANULOCYTE % 0.5 %; LYMPHOCYTE # 0.9 K/uL (0.8-4.0); LYMPHOCYTE % 15.9 %; MCH 29.5 pg (27.0-34.0); MCHC 31.3 gm/dL (32.0-36.5); MCV 94.5 fl (83.0-98.0); MONOCYTE # 0.3 K/uL (0.0-1.0); MONOCYTE % 5.4 %; MPV 11.2 fl (9.4-12.4); NEUTROPHIL # (ANC) 4.3 K/uL (1.4-9.0); NEUTROPHIL % 74.7 %; NRBC % 0 /100WBC (0-0.00); PLATELET COUNT 94 K/uL (150-450); RBC 2.71 M/uL (3.50-5.50); RDW-CV 15.9 % (11.9-14.6); WBC 5.8 K/uL (4.0-11.0)
[2017-04-05 06:27] LABS: INR - (THERAPEUTIC) 1.49 (0.92-1.07); PROTIME 15.7 SECONDS (9.8-11.4)
--- NOTE | 2017-04-05 08:20 | NUR ---
Left a message for Keren on inpatient rehab asking if they would have bed for this patient this week? 1040 Spoke with Yane Vega, thinking patient would be ready for discharge after procedure on Wednesday with Dr. Bonner. 1135 Followed up with patients daughter. She is doing much better then the end of last week. She was also under the impression discharge could be on . Gave her a quick little tour of [facility] even though we do not have acceptance yet. She wanted to see where it was located. She is aware I have not heard back from [facility] if they can even take yet.
--- NOTE | 2017-04-05 16:19 | NUR ---
Significant event: Up to chair with one assist. Needs 2 assist to stand and then gait is steady. Incontinent of urine. Had moderate BM today. Refuses to wear CPAP, reports it does not fit him when he lays down. dressing to back dry and intact. Percocet once for pain, new med orders received. [place] area red, aloe vesta applied redness to lower back noted also. Daughter at bedside. patient is alert and oriented.
--- NOTE | 2017-04-06 03:32 | NUR ---
Significant Event: Patient alert and oriented X4. Forgetful at times. Hard of hearing. Reposition every 2 hours. Buttocks/groin red from inconinence. Mod BM this shift. Orders to hold [address] Doherty because no blood return in midline. Consult [facility] nurse in AM for possible placement. ACHS accuchecks. valium given around 2155. 2 norco given about 0010. Relief noted. 1-2 person assist when up. Pneumatics on. Island dressing to upper back with shadow drainage noted. Skin tear to L) forearm. Fent patch to L) chest. Edema in legs noted. GIRP when bed is open. Follow up: Monitor pain
[2017-04-06 06:08] LABS: BASOPHIL % 0.2 %; EOSINOPHIL # 0.2 K/uL (0.0-0.5); EOSINOPHIL % 4.5 %; HEMATOCRIT 24.3 % (33.0-50.0); IMMATURE GRANULOCYTE % 0.6 %; LYMPHOCYTE # 1.2 K/uL (0.8-4.0); LYMPHOCYTE % 21.6 %; MCH 29.2 pg (27.0-34.0); MCHC 30.5 gm/dL (32.0-36.5); MONOCYTE # 0.4 K/uL (0.0-1.0); MONOCYTE % 6.5 %; MPV 11.1 fl (9.4-12.4); NEUTROPHIL # (ANC) 3.6 K/uL (1.4-9.0); NEUTROPHIL % 66.6 %; NRBC % 0 /100WBC (0-0.00); PLATELET COUNT 92 K/uL (150-450); RBC 2.53 M/uL (3.50-5.50); RDW-CV 16.1 % (11.9-14.6); WBC 5.4 K/uL (4.0-11.0)
[2017-04-06 06:11] LABS: HEMOGLOBIN 7.4 g/dL (11.0-16.0)
[2017-04-06 06:16] LABS: INR - (THERAPEUTIC) 1.4 (0.92-1.07); PROTIME 14.7 SECONDS (9.8-11.4)
[2017-04-06 06:26] LABS: ANION GAP 12.3 (10.0-19.0); BLOOD UREA NITROGEN 16 mg/dL (6-24); CALCIUM 7.9 mg/dL (8.5-10.5); CHLORIDE 113 mMol/L (96-110); CO2 22 mMol/L (22-32); ESTIMATED GFR (MDRD EQUATION) > 60; MAGNESIUM 1.5 mg/dL (1.8-2.6); PHOSPHORUS 2.7 mg/dL (2.5-4.9); POTASSIUM 4.3 mMol/L (3.7-5.1); SODIUM 143 mMol/L (135-145)
[2017-04-06 06:27] LABS: ALBUMIN 1.8 gm/dL (3.5-5.0)
--- NOTE | 2017-04-06 17:32 | NUR ---
Significant event: PICC line placed this am to left upper arm. Up to BR. Incontinent of bowel and bladder. Urine drips from penis when he stands. Permit signed for surgery for tomorrow for possible circumcision. daughter at bedside. [place] at 1445. Valium at 0837. accuchecks 110,156,160 no insulin needed.
--- NOTE | 2017-04-07 04:32 | NUR ---
Significant Event:PT IS A/O X3. PT HAS ISLAND DRESSING TO MIDLINE UPPER BACK WHICH HAS SOME SHADOW DRAINAGE. PT RECIEVED NORCO X1 @ 2118. PT HAS FENT PATCH TO LEFT CHEST. PICC LINE TO L UPPE ARM HAS GOOD BLOOD RETURN. PT IS NPO FOR POSSIBLE CIRCUMCISION. CONSENTS SIGNED AND PREOP CHECKLIST ON CHART. PT HAS SKIN TEAR TO L LOWER ARM WITH DRESSING. BOTTOM HAS CLOSED REDDENED AREA. PT IS INCONT OF URINE AND BOWELS. EDEMA TO LEGS, KATE HOSE OFF AT NIGHT ON DURING THE DAY WITH SCD'S. ACCUCHECKS AC/HS, BS WAS 143. PT IS A 1-2 ASSIST W/ WALKER. NEEDS MORE HELP ACTUALLY STANDING UP BUT WALKS PRETTY GOOD. NEED TO HELP REPOSITION PT FREQUENTLY. Follow up:POSSIBLE SURGERY TODAY
[2017-04-07 05:42] LABS: ANION GAP 13.3 (10.0-19.0); BLOOD UREA NITROGEN 18 mg/dL (6-24); CALCIUM 7.9 mg/dL (8.5-10.5); CHLORIDE 111 mMol/L (96-110); CO2 23 mMol/L (22-32); CREATININE 1.1 mg/dL (0.6-1.3); ESTIMATED GFR (MDRD EQUATION) > 60; MAGNESIUM 1.8 mg/dL (1.8-2.6); PHOSPHORUS 2.8 mg/dL (2.5-4.9); POTASSIUM 4.3 mMol/L (3.7-5.1); SODIUM 143 mMol/L (135-145)
[2017-04-07 05:51] LABS: ALBUMIN 1.9 gm/dL (3.5-5.0)
[2017-04-07 06:02] LABS: INR - (THERAPEUTIC) 1.23 (0.92-1.07); PROTIME 12.9 SECONDS (9.8-11.4)
--- NOTE | 2017-04-07 10:05 | NUR ---
Spoke to Keren on GIRP. Can accept on Wednesday if stable to come. 1140 Let charge nurse Judy know this. 1440 Updated daughter and left a note on the chart.
--- NOTE | 2017-04-07 15:45 | NUR ---
A - NUTRITION FOLLOW-UP. OR TODAY, STILL DROWSY FROM PROCEDURE, NOT ABLE TO VISIT. NO FAMILY MEMBER IN ROOM W/ PT. EDEMA TO LEGS PER SHIFT REPORT. WT STABLE. LABS: GLU 106, ALB 1.9, CRP 5.02. MEDS: DILAUDID, VALIUM. ON MEGACE. DIET: REGULAR W/ ENSURE ENLIVE BID. INTAKE 20% X9 MEALS. EST NEEDS: [id number] KCAL, 78-85 GRAMS PROTEIN, FLUID NEEDS: 1ML/KCAL D - INADEQUATE ORAL INTAKE RELATED TO DECREASED APPETITE EVIDENCED BY 20% X9 MEALS. I - WILL CONTINUE W/ ENSURE ENLIVE BID. CONTINUE TO ENCOURAGE ORAL INTAKE. MIGHT NEED NUTRITION SUPPORT IF APPETITE DOES NOT IMPROVED. M/E - GOAL: PT WILL BE ABLE TO TOLERATE >50% OF MEALS AND AT LEAST ONE ORAL SUPPLEMENT PER DAY IN 2-4 DAYS.
--- NOTE | 2017-04-07 18:56 | NUR ---
Significant Event: PT A/O. VSS ON RA, AFEBRILE. AMBULATES WITH 1PA, GAITBELT AND WALKER. THERAPY SHOWERED THIS AM. PICC TO TIM, GOOD BLOOD RETURN, SALINE LOCKED. CONTINUES ON IV VANCO. DRESSING TO POSTERIOR NECK INTACT, CHANGED DAILY. HAZARDOUS DRUG PRECAUTIONS. ACHS ACCUCHECKS, NO SSI NEEDED. PRN NORCO X1 AT 1711. HAD CIRCUMCISION REVISION TODAY, VASOLINE TO PENIS, SCROTUM RED, EDEMATOUS. HAS OPEN AREA TO R BUTTOCK. SKIN TEAR TO R ARM, DRESSING INTACT. DAUGHTER AT BEDSIDE, HELPFUL WITH CARES. PLAN IS TO REHAB WHEN READY. Follow up: MONITOR SURGICAL SITE, MONITOR NECK DRESSING
--- NOTE | 2017-04-08 05:33 | NUR ---
Significant Event: Patient alert and oriented. Up with 1-2 assist. Incontient of urine. Circumcision with sutures intact. Scrotum red. Rested well throughout shift. VSS on room air. Pleasant and cooperative with cares Follow up:continue
[2017-04-08 05:41] LABS: INR - (THERAPEUTIC) 1.12 (0.92-1.07); PROTIME 11.8 SECONDS (9.8-11.4)
[2017-04-08 05:46] LABS: CREATININE 1.1 mg/dL (0.6-1.3); ESTIMATED GFR (MDRD EQUATION) > 60
--- NOTE | 2017-04-08 11:10 | NUR ---
As requested meet patients daughter in patients room. Had some questions about GIRP and what to bring. Will find out and follow up with her. Spoke to Smiley on GIRP about what to bring. 1125 Followed up with patient and daughter. Instructed to bring 3-4 pairs of clothes and they will wash his clothes at night. Toiletries will be provided unless they have a brand preference. Inc products will be provided. Need to bring sturdy shoes and electric razor. She had no additional questions. Gave her a GIRP pamphlet. GIRP Wednesday around 0900. Confirmed with Keren Pleitez. Family, patient and doctor aware of discharge plans.
--- NOTE | 2017-04-08 17:18 | NUR ---
Cooperative with cares. Up w/1 assist, AGUSTIN, walker with slow steady gait. Stitches from circumcision intact; scrotum edematous and shiny. Continually dribbles urine. Brief on. BM today that smears; poor rectal tone. PICC to TIM s/l'd w/GBR. Tolerating regular diet well. Prefers cream of wheat for bfast. Daughter present most of day. Transferring to [facility] on Wednesday morning.Has CPAP but refused to wear it last night. Satting well on room air. VSS, afebrile. C/O back pain 8-07/25. Gave [place] and Dilaudid with relief. Fragile skin with tears.
--- NOTE | 2017-04-09 03:11 | NUR ---
SIGNIFICANT EVENT: Patient alert, oriented. Hard of hearing. Tremors d/t Parkinsons. 1PA with walker to ambulate. Slightly hypertensive - 136 to 147 over 63 to 65, other VSS on RA. Incontinent of urine and stool - 2 voids and 2 stools. Circumcision sutures intact. Scrotum edematous and red - aloe vesta to scrotum and sacral areas. Pleasant and cooperative with cares.
[2017-04-09 05:52] LABS: HEMATOCRIT 23.8 % (33.0-50.0)
[2017-04-09 05:55] LABS: INR - (THERAPEUTIC) 1.08 (0.92-1.07); PROTIME 11.3 SECONDS (9.8-11.4)
[2017-04-09 05:57] LABS: HEMOGLOBIN 7.3 g/dL (11.0-16.0)
[2017-04-09 05:59] LABS: ESTIMATED GFR (MDRD EQUATION) > 60
--- NOTE | 2017-04-09 11:55 | NUR ---
A-NUTRITION F/U NO NEW WT OR LABS. PLAN TO D/C TO [facility] ON 04/10 MEDS: LEVAQUIN, DILAUDID, NORCO DIET RX: REGULAR W/ENSURE ENLIVE BID. USES WEIGHTED SILVERWARE. PO INTAKE HAS IMPROVED SINCE LAST F/U ON 04/07 TO 75-100%. TAKING SUPPLEMENT WELL ALSO. EST NUTR NEEDS: 2934-3452 KCALS AND 78-85 GM PROTEIN D-AT NUTRITION RISK W/RECENT INADEQUATE ORAL INTAKE R/T DECREASED APPETITE AEB INTAKE RECORDS, PT REPORT. I-CONTINUE W/ENSURE ENLIVE BID M/E-GOAL: PO INTAKE >/=75% FOR DURATION OF ADMIT 1)F/U PO INTAKE, SUPPLEMENT, AND POC IN 5-7 DAYS 2)ASSIST NEEDED
--- NOTE | 2017-04-09 16:31 | NUR ---
AAO. Cooperative with cares. Up w/ assist, GB, walker, forward leaning. Showered today. VSS, afebrile, on RA. [place] now scheduled Q4hrs. Parveen to upper thoracic area to be removed on Wednesday by Dr Cancino. Stitches from circumcision intact. Scrotum edematous. Brief on for cotinuous dribbling. Up to chair for afternoon. Open sheared area on upper right buttock. VSS, afebrile, on RA. Refuses to use his CPAP, sats ok. BS ac/hs with mild SSI, no coverage given. Tolerating diet well. Takes pills a few at a time. To transfer to [facility] tomorrow morning. PICC to TIM last/AGUSTINR. Intermittent Vanco.
--- NOTE | 2017-04-10 02:52 | NUR ---
SIGNIFICANT EVENT: Patient alert & oriented. VSS on RA. Regular diet. ACHS accuchecks - Mild SS, no coverage this shift. Plan to transfer to [facility] tomorrow a.m. Dressing R) arm/elbow skin tear changed - petroleum gauze/gauze/wrap with tape to dressing only. PICC to L) UA flushes well, good blood return - no changes to measurments. [place] and Tylenol given as scheduled. Incontinent of bowel/bladder. Q2h turn. Pleasant and cooperative with cares.
[2017-04-10 06:18] LABS: ESTIMATED GFR (MDRD EQUATION) > 60
[2017-04-10 07:09] LABS: INR - (THERAPEUTIC) 1.22 (0.92-1.07); PROTIME 12.8 SECONDS (9.8-11.4)
--- NOTE | 2017-04-10 08:19 | NUR ---
Pt is alert & oriented. Mild htn - 133 to 140 over 63 to 84, other VSS on RA. Daughters present at beginning of shift. Scheduled [place] q6H given through night - pt slept well this shift. ACHS accuchecks - mild SS, no coverage as BG's have been below the 200 threshold for several shifts now. PICC to L) UA flushes well, good blood return - nurse draw. Has CPAP available for HS but refuses. March 30 biopsy and culture of T2 vertebrae - no drainage, open to air. Circumcision site free of redness but scrotum/ramy is red and edematous. Q2h turn - sacral pressure ulcers on admission, healing. To GIRP later this a.m.
--- NOTE | 2017-04-10 12:26 | NUR ---
Significant event: Patient is alert and oriented. VSS. on room air. PICC to left upper arm, with good blood return, saline locked. Takes meds whole, few at a time. Moves slowly, with walker and gaitbelt. Parveen intact to posterior upper back/neck area. Slight redness to lower incision. Scrotum is swollen, and has continous dribbling, wears a pull up pad. Transferred to [facility] by wheelchair. Daughter here and helped to carry belongings. Report given to NABILA Veliz.
== END 2017-04-10 11:50 | disposition other institution (70) | DRG 477 ==
LOC: G3N 03-30 10:32 → GMSU 04-03 15:36
PROVIDERS: Internal Medicine; Internal Medicine Geriatric Medicine; Physician Assistant; Urology; ADMIT Neurological Surgery
PROC: 8E0WXBZ Computer Assisted Procedure of Trunk Region (ICD-10-PCS; principal; 2017-03-30)
PROC: 0PB40ZX Excision of Thoracic Vertebra, Open Approach, Diagnostic (ICD-10-PCS; principal; 2017-03-30)
PROC: 05HB33Z Insertion of Infusion Device into Right Basilic Vein, Percutaneous Approach (ICD-10-PCS; 2017-04-06)
PROC: 0VNSXZZ Release Penis, External Approach (ICD-10-PCS; 2017-04-07)
DX: M46.24 Osteomyelitis of vertebra, thoracic region (principal); G93.40 Encephalopathy, unspecified; E46 Unspecified protein-calorie malnutrition; E11.22 Type 2 diabetes mellitus with diabetic chronic kidney disease; C61 Malignant neoplasm of prostate; I48.0 Paroxysmal atrial fibrillation; I12.9 Hypertensive chronic kidney disease with stage 1 through stage 4 chronic kidney disease, or unspecified chronic kidney disease; D63.1 Anemia in chronic kidney disease; E83.42 Hypomagnesemia; E78.5 Hyperlipidemia, unspecified; M46.44 Discitis, unspecified, thoracic region; G47.33 Obstructive sleep apnea (adult) (pediatric); N18.9 Chronic kidney disease, unspecified; Z66 Do not resuscitate; Z87.440 Personal history of urinary (tract) infections; Z88.0 Allergy status to penicillin; Z87.891 Personal history of nicotine dependence; Q55.64 Hidden penis; N39.498 Other specified urinary incontinence; Z92.3 Personal history of irradiation; K21.9 Gastro-esophageal reflux disease without esophagitis; Z68.24 Body mass index [BMI] 24.0-24.9, adult; Z86.718 Personal history of other venous thrombosis and embolism; Z79.01 Long term (current) use of anticoagulants
CPT/HCPCS: C1751; J0744; J1170; J2001; J2270; J2405; J3010; J3370; J3475; J7030; J7040; J7050; J7060

== ENCOUNTER 2017-04-10 11:44 | Inpatient (IN) | payer MEDICARE, OTHER ==
[~2017-04-10] VITALS: Ht 177.8 cm; Wt 75.1 kg
--- NOTE | ~2017-04-10 | CON ---
PATIENT'S NAME: KATHARINE BURGER [facility] AGE: 87 Y [address] ROOM: [id number] [place], [place] [address] LOCATION: GIRP ADMIT DATE: 04/10/2017 Consultation DISCHARGE DATE: 04/23/2017 FAMILY PHYSICIAN: Pj Cole ATTENDING PHYSICIAN: Constantino Valdez DATE OF CONSULTATION: 04/13/2017 REFERRING PHYSICIAN: Jennifer Che MD Team members reporting include Dr. Valdez; Keren Pleitez, oncology social work; Smiley Pryor, RN; Siobhan Syed, PT; Monique Haile, PT; Myriam Bradford, OT; Kim Ward, Speech Therapy; Sruthi Heath, therapeutic rec; and Sister Soni Dang, Pastoral Care. CURRENT STATUS: Katharine is an 87-year-old man admitted to our inpatient rehab unit with back pain. The patient did have a biopsy and culture of his T2 vertebrae for upper back pain, compression fracture of thoracic vertebra, and diskitis. The patient was found to have osteomyelitis and is currently on IV antibiotics. The patient is incontinent of bladder frequently. He has a blister on his left toe. They continue to monitor his circumcision that was recently done. His skin has broke down on his bottom, and they are putting Aloe [place] cream on it. The patient complains of lots of pain. He has a fentanyl patch and Dilaudid. The patient has a lot of swelling in his legs. We are now going to be wrapping them with Patrice wraps. He is on a regular diet. He needs weighted silverware on all trays. The patient does complain of pain all the time. He needs extra time for all of his transfers. He can transfer sit to supine and supine to sit at minimal assistance; [id number] and stand to sit, contact guard assistance; and bed to chair and chair to bed, contact guard assistance. He can walk 120 to 150 feet with a front-wheeled walker at contact guard assistance. His goals have been set for standby. The patient can dress his upper body at max assistance; lower body, dependent; grooming, max assistance; bathing, moderate assistance; toilet and shower transfers, minimal assistance; and toileting, dependent. The patient is open to pastoral care. DISCHARGE PLAN: The patient is receiving 3 hours of PT and OT Wednesday through Wednesday. The patient has daily rehab, nursing, and physiatry involvement as well as therapeutic recreational services 4 days per week. The patient has shown functional improvement and is progressing. Please see his plan of care for specific goals. Plan is for the patient to discharge in approximately 7 to 10 days. We will likely need to look at a alf facility due to the patient's pain issues. PATIENT'S NAME: KATHARINE B[facility]GER [facility] AGE: 87 Y [address] ROOM: [place] [address] LOCATION: [facility] ADMIT DATE: 04/10/2017 Consultation DISCHARGE DATE: 04/23/2017 FAMILY PHYSICIAN: Pj Cole ATTENDING PHYSICIAN: Constantino Valdez KEREN PLEITEZ FOR CONSTANTINO VALDEZ MD TD/mely /[id number] d: 04/26/17 1346 t: 05/11/17 0811, CONSULTATION REPORT
--- NOTE | ~2017-04-10 | CON ---
PATIENT'S NAME: KATHARINE BURGER [facility] AGE: 87 Y [address] ROOM: G[address]94 [place], [place] [address] LOCATION: [facility] ADMIT DATE: 04/10/2017 Consultation DISCHARGE DATE: 04/23/2017 FAMILY PHYSICIAN: Pj Cole ATTENDING PHYSICIAN: Constantino Valdez DATE OF CONSULTATION: 04/20/2017 REFERRING PHYSICIAN: Jennifer Che MD Team members reporting include Dr. Valdez; Keren Pleitez, school social worker; Smiley Pryor, RN; Siobhan Syed, PT; Monique Haile, PT; Myriam Bradford, OT; Sruthi Heath, therapeutic rec; and Sister Soni Dang, Pastoral Care. CURRENT STATUS: Katharine is an 87-year-old man, admitted to our inpatient rehab unit with osteomyelitis. The patient is having considerable pain. He has a history of diabetes type 2, Parkinson's, reflux gastric disease, hypertension, carcinoma of the prostate, prostatectomy and status post radiation, DVT, anemia, and depression. The patient is incontinent of bladder frequently. He has a Lidoderm patch as well for pain. The patient is frequently uncomfortable. The patient can transfer sit to supine at contact guard assistance; supine to sit, minimal assistance; [id number]-hd-[id number] and stand to sit, contact guard assistance; and bed to chair and chair to bed, contact guard assistance. He can walk 180 feet with a front wheel walker at close stand-by assistance. He can climb 4 stairs with 2 railings at contact guard assistance. He has met 5/6 short-term PT goals. Complains of 8/10 pain. The patient can dress his upper body at standby; lower body, dependent; grooming, standby; bathing, minimal assistance; toilet and shower transfers, contact guard assistance; and toileting, dependent. The patient has met 3/4 short-term OT goals. Overall, the patient's pain is limiting. He can complete car transfers at contact guard assistance in extra time. The patient has been very open to pastoral care. Overall, the patient's pain is limiting. We continue to watch is Coumadin with his PT and INRs. DISCHARGE PLAN: The patient is receiving 3 hours of PT, OT, Wednesday through Wednesday. The patient has daily rehab, nursing, and physiatry involvement as well therapeutic recreational services 4 days per week. The patient has shown functional improvement and is progressing. Please see his plan of care for specific goals. Plan is for the patient to discharge on April 23, 2017. The patient will be going to [facility] in [place], [place] to continue therapy and his IV antibiotics. PATIENT'S NAME: KATHARINE BURGER [facility] AGE: 87 Y [address] ROOM: [id number] [place] [id number] LOCATION: [facility] ADMIT DATE: 04/10/2017 Consultation DISCHARGE DATE: 04/23/2017 FAMILY PHYSICIAN: Pj Cole ATTENDING PHYSICIAN: Constantino Valdez KEREN PLEITEZ FOR CONSTANTINO VALDEZ MD TD/lawrencel /[id number] d: 04/26/17 1403 t: 05/11/17 0809, CONSULTATION REPORT
--- NOTE | ~2017-04-10 | DS ---
PATIENT'S NAME: KATHARINE BURGER [facility] AGE: 87 Y [address] ROOM: [address] [place] [address] LOCATION: [facility] ADMIT DATE: 04/10/2017 Discharge Summary DISCHARGE DATE: FAMILY PHYSICIAN: Pj Cole ATTENDING PHYSICIAN: Constantino Valedz This 87-year-old gentleman was admitted to rehab unit on 04/10/2017 and is discharged to go to [place] at [facility] in [place], [place], on 04/23/2017. He was put on intensive rehabilitation after he did undergo a surgical procedure on 03/31/[address] Dill for diskitis T2-T3 and query questionable T3 tumor plus osteomyelitis. He was on antibiotics, and Infectious Disease followed on him closely. He is also with chronic renal disease and is at the present time stable, alert, oriented. Vitals are as follows: Blood pressure 141/70, temperature 98.0, pulse 79, respiration rate 16. He is followed with hospitalist/pharmacist with PT and INR. He is on Coumadin. They will renew his Coumadin and the dose. On 04/22, PT is 20.7 and INR 1.96. He can ambulate at best 150 feet with front-wheeled walker slowly and with handheld assistance and supervision closely. He is at the present time on the following medications: 1. Vancomycin 1 g vial in 1500 mg in 0.9 normal saline in 500 mL. 2. [place] 5/325 two tablets q.6 hours as needed. 3. Activase for IV line opening. 4. Casodex 50 mg tablet p.o. daily. 5. Sinemet 25/100 one tablet q.4 times daily. 6. WelChol 625 mg tablet, give 1875 mg twice daily with meals. 7. Duragesic 25 mcg transdermal q.72 hours. 8. Feosol 325 p.o. b.i.d. 9. Lasix 40 mg b.i.d. 10. Levaquin 750 mg p.o. q.48 hours, last dose will be 05/11. 11. Lidoderm 2 patch transdermal daily. 12. Fish oil 3000 mg p.o. twice daily. 13. Protonix 40 mg twice daily. 14. Potassium tablet 20 mEq p.o. daily. 15. Coumadin dose was followed by hospitalist and pharma, please to continue as per their advice. 16. Florastor 250 mg p.o. twice daily. 17. Zoloft 50 mg p.o. at bedtime. 18. Hytrin 2 mg p.o. in the morning. 19. Dulcolax suppository 10 mg rectally p.r.n. PATIENT'S NAME: KATHARINE BURGER [facility] AGE: 87 Y [address] ROOM: [address] [address] LOCATION: [facility] ADMIT DATE: 04/10/2017 Discharge Summary DISCHARGE DATE: FAMILY PHYSICIAN: Pj Cole ATTENDING PHYSICIAN: Constantino Valdez 20. Valium 2.5 mg p.o. 3 times daily as needed. 21. Glucose orally 16 g p.r.n. 22. Dilaudid 0.5 mg p.o. q.2 hours as needed. 23. Milk of magnesia 30 mL p.o. at bedtime. FINAL DIAGNOSES: 1. Unstable gait. 2. Dependent in activities of daily self-care. 3. Status post T2-T3 diskitis with query T3 tumor, surgery done on 03/31/[address] Dill with possible osteomyelitis, on antibiotics, and followed by Infectious Disease. 4. Diabetes, type 2. 5. Parkinson's. 6. Reflux gastric disease. 7. Hypertension. 8. Carcinoma of prostate, prostatectomy, and status post radiation. 9. Deep venous thrombosis per history. 10. Anemia. 11. Depression. The patient is not to drive and/or operate any mechanical device until he is reevaluated. No followup with me. Follow up with Dr. Dill and hospitalist as he sees fit and Dr. Bonner, urologist, as he sees fit. All the above was explained to him in detail. He verbalized understanding and agreement. CONSTANTINO VALDEZ MD WMS/modl /[id number] d: 04/22/171417 t: 04/23/17812, DISCHARGE SUMMARY
--- NOTE | ~2017-04-10 | HP ---
PATIENT'S NAME: KATHARINE BURGER [facility] AGE: 87 Y [address] ROOM: [place] [address] LOCATION: [facility] ADMIT DATE: 04/10/2017 History & Physical DISCHARGE DATE: FAMILY PHYSICIAN: Pj Cole ATTENDING PHYSICIAN: Constantino Cabrear DATE OF SERVICE: HISTORY OF PRESENT ILLNESS: This 87-year-old gentleman is admitted for continuous medical treatment and intensive rehabilitation. 1. Unstable gait. 2. Dependent activities of daily and self-care. 3. Status post T2-T3 diskitis. 4. Query (?) T3 tumor with marked weakness of bilateral lower extremities and falling. He was through surgery on 03/31/2017 as follows. 1. Stealth neuronavigation. 2. Transpedicular biopsy of T3 body. 3. Culture and sensitivity of T3 lesion. 4. Biopsy of T3 vertebral body. 5. Taking biopsies for culture and sensitivity with a curved needle for biopsy, pushing through the needle done on 03/30/2017, details on record. PAST MEDICAL HISTORY: Past history of significance: 1. Also osteomyelitis of T2. 2. Diskitis to T2-T3 space. 3. Query (?) tumor of T3. PAST SURGICAL HISTORY: Past history of significance: 1. CA prostate. 2. Status post radiation. 3. Chronic kidney failure. 4. DVT per history. 5. Dyslipidemia. 6. Osteoarthritis. 7. Hypertension. 8. Reflux gastric disease. 9. Questionable Parkinson. PHYSICAL EXAMINATION: GENERAL APPEARANCE: He is at the present time alert, fairly well oriented, and hard of hearing. PATIENT'S NAME: KATHARINE BURGER [facility] AGE: 87 Y [address] ROOM: [place] [address] LOCATION: [facility] ADMIT DATE: 04/10/2017 History & Physical DISCHARGE DATE: FAMILY PHYSICIAN: Pj Cole ATTENDING PHYSICIAN: Constantino Cabrera VITAL SIGNS: Blood pressure 135/75, temperature 98.1, pulse 80, and respiratory rate 16. He is 5 feet 10 inches tall and weighs 77.7 kg. ALLERGIES: HE IS ALLERGIC TO PENICILLIN. CURRENT MEDICATIONS: He is on the following medications: 1. Vancomycin IV 1 g q.24 hours and this followed with peak and trough. 2. Tylenol Extra Strength 1000 mg twice daily p.o. 3. Casodex 50 mg p.o. daily. 4. Sinemet 25/100, 1 tablet 4 times daily. 5. WelChol 625 mg, give 1875 mg twice daily p.o. with meals. 6. NovoLog insulin sliding scale and subcutaneous before meals and at bedtime. 7. Levaquin 750 mg p.o. q.48 hours. 8. Zestril 20 mg twice daily. Hold if systolic blood pressure is below 110. 9. Lovastatin 20 mg p.o. at bedtime. 10. Mag-Ox 400 give 400 mg p.o. b.i.d. 11. Lopressor 25 mg p.o. twice daily. Hold if systolic blood pressure is below 110. 12. Theravite 1 tablet p.o. daily. 13. Fish oil 3000 mg twice daily p.o. 14. Protonix 40 mg p.o. daily. 15. Florastor 250 mg twice daily. 16. Coumadin 2.5 mg p.o. on Wednesday, Wednesday, and Wednesday, and pharmacy will follow. 17. Coumadin 5 mg p.o. on Sundays, , Fridays, and Saturdays. 18. Zoloft 50 mg p.o. every bedtime. 19. Hytrin 2 mg p.o. in the morning. 20. [place] 5/325, 1 tablet p.o. q.4 hours p.r.n. Do not exceed acetaminophen 4 g q.24 hours. 21. Dextrose 25 mL IV for hypoglycemia p.r.n. 22. Valium 2.5 mg p.o. 3 times daily as needed. 23. Glucagon 1 mg subcutaneous for hypoglycemia p.r.n. 24. Glucose 16 g p.o. for hypoglycemia p.r.n. 25. Dilaudid 0.5 mg p.o. q.2 hours as needed p.r.n. 26. Lasix 20 mg p.o. daily for 2 doses. 27. CPAP when position for sleep or sleep anticipated. At the present time, he is able to ambulate slowly about 35 feet with a front- wheeled walker. Can follow two-step commands. He is oriented x3. However, he is hard of hearing. We will put on intensive PT and OT 3 hours per day, 15 hours per week for the coming 2 to 3 weeks aiming to discharge on modified independence. PATIENT'S NAME: KATHARINE BURGER [facility] AGE: 87 Y [address] ROOM: [id number] [place] [id number] LOCATION: [facility] ADMIT DATE: 04/10/2017 History & Physical DISCHARGE DATE: FAMILY PHYSICIAN: Pj Cole ATTENDING PHYSICIAN: Constantino Cabrera We will keep on Dr. Dill and doctor hospitalist and Dr. Bonner, urologist to follow as necessary. We will send for CMS every week on Wednesday. His Accu-Cheks on 04/11 in a.m. 0659 hours was 113, varying between 174 to 113. 1. His CBC as follows: WBC 4.9, RBC 2.44, hemoglobin 7.1, hematocrit 23.0, and platelets 116,000. 2. CMS; sodium 142, potassium 4.5, chloride 111, CO2 of 23, BUN 20, creatinine 1.09, and glucose 99. 3. His PT was 17.1, INR 1.62, pharmacy following. 4. Prealbumin 13.0. We will put on intensive therapy and we will follow closely. All the above was explained to him in detail. He verbalized understanding and agreement with plan of care. MD LAURIE SIMPSON/lawrencel /[id number] D: [id number] T: [id number] HISTORY & PHYSICAL
--- NOTE | ~2017-04-10 | CON ---
PATIENT'S NAME: KATHARINE BURGER [facility] AGE: 87 Y [address] ROOM: [address] [place], [place] [address] LOCATION: [facility] ADMIT DATE: 04/10/2017 Consultation DISCHARGE DATE: FAMILY PHYSICIAN: Pj Cole ATTENDING PHYSICIAN: Constantino Cabrera DATE OF CONSULTATION: 04/14/2017 REFERRING PHYSICIAN: Jennifer Che MD REFERRING PROVIDER: Concepcion Hastings MD. REASON FOR CONSULTATION: Anemia. HISTORY OF PRESENT ILLNESS: This is an 87-year-old gentleman who was admitted on 03/30/2015. The patient was found to have back pain at that time. He did undergo surgery with Dr. Dill for osteomyelitis, diskitis, as well as T2 tumor of the vertebral body. The patient also has a past medical history significant for prostate cancer, status post radiation therapy, and multiple urinary tract infections. We were asked to see in consultation as the patient currently resides on our inpatient rehab postop for an anemia. The patient's hemoglobin has continued to trend downward. Recheck hemoglobin this morning, did result at 6.9, hematocrit of 22.5, MCV was 94.1. The patient on admission on 03/31 was at 8.3. In discussion with the patient, he denies any martha abdominal pain. No nausea or vomiting. He cannot tell me any changes of stool color. Per nursing staff, it appears that there has been some bright red blood per rectum "on top of the stool" as well as some "rust color stools." Hematest positive x3 stools has been completed. The patient does have noticed increased fatigue and in discussion with the patient, he does recall undergoing a colonoscopy at [facility] "a few years ago." We will request for these records to be sent to us. The patient denies any martha abdominal pain, nausea, vomiting, fever, or chills at this time. PAST MEDICAL HISTORY: Prostate cancer, status post radiation therapy; atrial fibrillation, on long- term anticoagulation; renal insufficiency stage III; type 2 diabetes; hypertension; history of DVT; anemia; osteoarthritis; hypertension; hyperlipidemia; GERD; and recurrent urinary tract infections. PAST SURGICAL HISTORY: 1. Colonoscopy number of years ago; back surgery; nasal surgery; prostate cancer; cholecystectomy; bilateral cataracts; bone biopsy of the hip; biopsy of T2; unsure of history of upper endoscopy. PATIENT'S NAME: KATHARINE BURGER [facility] AGE: 87 Y [address] ROOM: [address] [place], [place] [address] LOCATION: [facility] ADMIT DATE: 04/10/2017 Consultation DISCHARGE DATE: FAMILY PHYSICIAN: Pj Cole ATTENDING PHYSICIAN: Constantino Cabrera SOCIAL HISTORY: Again, the patient currently resides in our inpatient rehab. He is a nonsmoker with distant history of smoking in the past. No current alcohol abuse. FAMILY HISTORY: The patient's father had heart attack. The patient's brother had lung cancer. The patient's sister had a heart attack, emphysema, and diabetes. ALLERGIES: PENICILLIN. CURRENT MEDICATIONS: Please refer to the medication administration record. REVIEW OF SYSTEMS: A 12-point review of systems was completed. All were negative except for those identified in the history of present illness. PHYSICAL EXAMINATION: GENERAL: A very pleasant, elderly 87-year-old male, sitting in the chair, who appears to be in no acute distress. VITAL SIGNS: Temperature 98.2, pulse of 74, respirations of 18, blood pressure 132/57, oxygen saturations 94% on room air. SKIN: [place], warm, dry. No jaundice. HEENT: Head is normocephalic and atraumatic. Pupils are equal, round, and reactive to light. Sclerae are clear. Nonicteric. Oral mucosa is pink and moist. No thyromegaly. NECK: Soft and supple. CARDIOVASCULAR: Normal S1, S2. RESPIRATORY: Respirations even and unlabored. LUNGS: Clear to auscultation. Slightly diminished in the bilateral lobes. ABDOMEN: Soft, round, nontender to deep palpation. Bowel sounds are positive x4 quadrants. MUSCULOSKELETAL: No muscle weakness or atrophy. EXTREMITIES: No clubbing or cyanosis. NEUROLOGICAL: Grossly nonfocal. LABS AND DIAGNOSTICS: Laboratory obtained on 04/14/2017 showed a white blood cell count of 5.0, hemoglobin of 6.9, hematocrit of 22.5, platelet of 125. Chemistry panel includes a glucose of 100, BUN of 21, creatinine 1.1. Sodium 142, potassium of 4.4, chloride 109, CO2 of 26. Albumin of 2.0, AST of 11, ALT of less than 10, alkaline phosphatase of 85, total bilirubin 0.2, pro-time 18.9, INR is PATIENT'S NAME: KATHARINE BURGER [facility] AGE: 87 Y [address] ROOM: [address] [place], [place] [address] LOCATION: [facility] ADMIT DATE: 04/10/2017 Consultation DISCHARGE DATE: FAMILY PHYSICIAN: Pj Cole ATTENDING PHYSICIAN: Constantino Cabrera 1.79, iron studies did include an iron of 29, TIBC is a 190, percent saturation of 15, ferritin of 297.4. Heme test also was positive x3 stools. ASSESSMENT AND PLAN: Again, this is a very pleasant, elderly 87-year-old gentleman who was admitted with severe back pain secondary to osteomyelitis, diskitis, as well as a T2 tumor, status post surgery per Dr. Dill, we were asked to see in consultation for continued downward trend of hemoglobin with the last hemoglobin 6.9 requiring 1 unit of blood to be transfused. At this time, we will request further records to be sent to us from his previous colonoscopy and possible upper endoscopy. A discussion was held with the patient per Dr. Marilu Tovar as the patient is refusing any colonoscopy work up. We discussed this with Dr. Javier as recommendations include transfusing as needed. We will continue monitoring the patient's hemoglobin. Thank you for this consult. VERO MONTEIRO APRN FOR MARILU TOVAR MD MMF/modl /[id number] d: 04/15/17 175 t: 04/28/17 1132, CONSULTATION REPORT
--- NOTE | 2017-04-10 13:23 | NUR ---
Patient alert and oriented. Forgetful at times. Up with 1A walker and gait belt. Patient admitted for back pain. Biopsy of T2 showed discitis. Taking IV Vanco. ID doctors consulted. Regular diet. Accuchecks ACHS with mild ssi. PICC to LUE. Fragile skin. Skin tear to right elbow covered. Dressing change daily. Incontinent. CPAP at night. Patient refuses to wear. Circumcision performed due to chronic urinary tract infections. Sutures have been removed. Sheared area to right upper buttocks. Parveen to incision on posterior neck. Takes norco q 6 hours for pain. Hx of parkinson. Tremors.
--- NOTE | 2017-04-10 14:52 | NUR ---
Significant Event: See admission note. Follow up:
[2017-04-11 06:25] LABS: ALBUMIN 1.9 gm/dL (3.5-5.0); ALK PHOS 77 IU/L (33-138); ALT < 10 IU/L (12-78); ANION GAP 12.5 (10.0-19.0); AST 11 IU/L (10-40); BLOOD UREA NITROGEN 20 mg/dL (6-24); CALCIUM 7.5 mg/dL (8.5-10.5); CHLORIDE 111 mMol/L (96-110); CO2 23 mMol/L (22-32); ESTIMATED GFR (MDRD EQUATION) > 60; POTASSIUM 4.5 mMol/L (3.7-5.1); SODIUM 142 mMol/L (135-145); TOTAL BILIRUBIN 0.2 mg/dL (0.0-1.5); TOTAL PROTEIN 5.2 g/dL (6.0-8.4)
--- NOTE | 2017-04-11 06:25 | NUR ---
Alert and oriented to person and place. Constant dribble of urine but does not call to have diaper changed. Also incont of bowels. Incision to neck slightly reddened with theresa in place. On scheduled [place] every 6 hrs. Last given at 0540. Picc line to Lt forearm with IV Vanco due at 1700. AM labs drawn. Accu= 160 at hs with no sliding scale indicated.
[2017-04-11 06:45] LABS: BASOPHIL % 0.4 %; EOSINOPHIL # 0.3 K/uL (0.0-0.5); EOSINOPHIL % 5.7 %; IMMATURE GRANULOCYTE % 0.6 %; LYMPHOCYTE # 1.2 K/uL (0.8-4.0); LYMPHOCYTE % 23.3 %; MCV 94.3 fl (83.0-98.0); MONOCYTE # 0.4 K/uL (0.0-1.0); MONOCYTE % 7.9 %; MPV 11.7 fl (9.4-12.4); NEUTROPHIL # (ANC) 3.1 K/uL (1.4-9.0); NEUTROPHIL % 62.1 %; NRBC % 0 /100WBC (0-0.00); RBC 2.44 M/uL (3.50-5.50); RDW-CV 16.1 % (11.9-14.6); WBC 4.9 K/uL (4.0-11.0)
[2017-04-11 06:50] LABS: HEMOGLOBIN 7.1 g/dL (11.0-16.0); MCH 29.1 pg (27.0-34.0); MCHC 30.9 gm/dL (32.0-36.5); PLATELET COUNT 116 K/uL (150-450)
[2017-04-11 06:52] LABS: INR - (THERAPEUTIC) 1.62 (0.92-1.07); PROTIME 17.1 SECONDS (9.8-11.4)
--- NOTE | 2017-04-11 07:44 | NUR ---
PT TRANSFERRED TO [facility]. WILL CONT INTERVENTIONS INITIATED ON ACUTE CARE AND F/U IN 2-4 DAYS.
--- NOTE | 2017-04-11 14:56 | NUR ---
Significant Event: Alert and oriented. Forgetful at times. Up with 1A walker and gait belt. Accuchecks ACHS. 113 and 193 this shift. No sliding scale needed. Pills whole with water. Parveen intact to incision to posterior neck. Moisture barrior applied to open area on buttocks. Takes scheduled norco for pain. Tremors. Cooperative with cares. Follow up:
--- NOTE | 2017-04-12 05:41 | NUR ---
Alert and oriented. Called at 0530 to get up to toilet. Did have Mod BM and Large incont void at this time. Had Lg incont without calling for nurse 3 times prior this shift. Constantly dribbles urine. Circumsision healing with scrotum edematous and tender. 3+ pitting edema in legs bilaterally. Left TEDS on this shift. Need physician to address this for Lasix order. Takes scheduled [place] every 6 hrs. Due at 11 and [address] [place] in [address] to neck incision with redness noted to lower 1/3 of incision. IV Vanc due at 1700. Accu= 185
[2017-04-12 06:01] LABS: ALK PHOS 84 IU/L (33-138); ANION GAP 11.6 (10.0-19.0); AST 13 IU/L (10-40); BLOOD UREA NITROGEN 18 mg/dL (6-24); CALCIUM 7.5 mg/dL (8.5-10.5); CHLORIDE 112 mMol/L (96-110); CO2 23 mMol/L (22-32); ESTIMATED GFR (MDRD EQUATION) > 60; POTASSIUM 4.6 mMol/L (3.7-5.1); SODIUM 142 mMol/L (135-145); TOTAL PROTEIN 5.5 g/dL (6.0-8.4)
[2017-04-12 06:04] LABS: ALT < 10 IU/L (12-78); TOTAL BILIRUBIN 0.3 mg/dL (0.0-1.5)
[2017-04-12 06:22] LABS: BASOPHIL % 0.2 %; EOSINOPHIL # 0.3 K/uL (0.0-0.5); EOSINOPHIL % 5.5 %; HEMATOCRIT 24.2 % (33.0-50.0); HEMOGLOBIN 7.4 g/dL (11.0-16.0); IMMATURE GRANULOCYTE % 0.8 %; LYMPHOCYTE # 1.3 K/uL (0.8-4.0); LYMPHOCYTE % 26.9 %; MCH 28.7 pg (27.0-34.0); MCHC 30.6 gm/dL (32.0-36.5); MCV 93.8 fl (83.0-98.0); MONOCYTE # 0.4 K/uL (0.0-1.0); MONOCYTE % 7.4 %; MPV 11.6 fl (9.4-12.4); NEUTROPHIL # (ANC) 2.8 K/uL (1.4-9.0); NEUTROPHIL % 59.2 %; NRBC % 0 /100WBC (0-0.00); PLATELET COUNT 130 K/uL (150-450); RBC 2.58 M/uL (3.50-5.50); RDW-CV 16.3 % (11.9-14.6); WBC 4.8 K/uL (4.0-11.0)
[2017-04-12 06:26] LABS: INR - (THERAPEUTIC) 2.03 (0.92-1.07); PROTIME 21.5 SECONDS (9.8-11.4)
--- NOTE | 2017-04-12 12:53 | NUR ---
Significant Event: PATIENT UP 1 ASSIST, WALKER, GAIT BELT. ALERT AND ORIENTED X3. INCONTINENT OF URINE OFTEN. BM TODAY. ACHS ACCUCHECKS, HAS NOT NEEDED SLIDING SCALE TODAY. NORCO SCHEDULED FOR PAIN. INCISION TO NECK STAPLED, OPEN TO AIR. SORE TO SACRAL AREA. SCROTUM EDEMATOUS. LEGS EDEMATOUS, KEEPING ELEVATED TODAY. FEEDS SELF, EATS SLOWLY. PICC TO LEFT ARM, RECEIVES VANCO QDAY. MD NEEDS TO ADDRESS DNR STATUS. Follow up: DNR STATUS
--- NOTE | 2017-04-13 05:57 | NUR ---
Alert and oriented.Up with 1-2 assist and walker. Parveen to neck intact. Incont of lg amt urine and BM x1 with on toileted BM. Circumcision site healing well. [place] leaking of bladder. Needs diaper change every 2 hrs. Aloe Priddy oint to abrasion on coccyx. PICC line to left arm. IV VAnc to be hung at 1700. 40 mg lasix last evening due to 3+ pitting edema to lower ext. On scheduled [place] q 6 hrs for you at 1100 and 1700. Several labs drawn this am, check for results.
[2017-04-13 06:34] LABS: INR - (THERAPEUTIC) 2.21 (0.92-1.07); PROTIME 23.4 SECONDS (9.8-11.4)
--- NOTE | 2017-04-13 09:03 | NUR ---
D: Therapeutic Recreation Initial Assessment on the 04/13/17. I: Patient seen for 2 units at 903 to begin initial evaluation. Pt has dx of compression fx with spinal precautions. R: Patient's current living situation and status: house Home entrance steps: 3 Living with: alone Spouses name: # of children: 3 (1 close by) Driving: yes, until admission Ambulating: Ar Equipment: walker at night Hand Dominance: Right Malt Loader strength: weakness Eye sight: glasses Reading ability: N/T Hearing: [place] Speech: clear Cognition: impaired Comprehension: fair Following directions: yes Initiating: at times Eye contact: fair Affect: flat COMMUNITY INVOLVEMENT: out for breakfast daily, grocery shopping, visit with family friends. LEISURE INTERESTS: some TV, listen to music, outdoors, garden Patient is referred by medical staff for treatment and evaluation in the following areas: Community Skills, Functional Leisure Skills, Participation, Leisure Education/Behaviors, Family Education, Cognitive, Emotional. Information obtained: Interview, Chart Review, Observation, other. BARRIERS TO LEISURE: Physical, Lifestyle (reports some problems with depression when dealing with pain) Transportation, Leisure Skills. Patient determined to be: APPROPRIATE FOR THERAPEUTIC RECREATION ASSESSMENT. TREATMENT WILL INCLUDE: Community living skills training Functional leisure development Physical skills development Leisure education Emotional/behavioral adaptation Family education Community resources/packet TARGET EQUIPMENT/INFORMATION: Parking Permit Community Resources Energy conservation in community setting Van/Service/Taxi Scrip Adapted Leisure Equipment Stress management/Relaxation techniques Functional car transfers Leisure Education Behaviors: Attitude, Awareness, Participation. Patient functional skills level and potential: Guarded, pt demonstrates poor mobility with problems for pain management. Patient oriented ot TR services on Rehab unit. Pt/family provided input into goals setting and plan of care. Pt's goal is to return home and drive again. P: Target date set with personal goals established. Will continue with POC focusing on pt/family training and education. For additional information please see Nursing Data Base, PT, OT, CM, ST, initial assessments to [facility] and Interdisciplinary Assessments.
--- NOTE | 2017-04-13 13:07 | NUR ---
Significant Event: Patient alert and oriented. Forgetful and hard of hearing. PICC line and is on IV Vancomycin. Hazardous medication precautions on oral Casodex. Patient is incontinent of stool and urine. Patient leaks urine. Need to check attend and offer bathroom every 2 hours. Parveen to back intact with some slight pink at top of incision. WOC here to assess patient. Has very excoriated skin to periarea and coccyx. Aloe with cares. Scrotal and penile edema. Edema to bilat lower extremities. Accuchecks with s/s insulin. Lots of back pain. [place] increased to 2 tabs every 6 hours. Hematest stools. 1 stool sent. Has a duragesic patch Follow up:
--- NOTE | 2017-04-14 04:07 | NUR ---
Significant Event: Up with 2 assist/walker, does fairly well--allow him to do most of the transfer/turn and it minimizes the discomfort to neck/back area. PICC to left upper arm intact, drsg changed on . Good blood return, have a blood draw this a.m and plan to flush with 20 ml saline as was declotted on as well. Red/excoriated buttocks--pat area, not wipe due to sensitivity/tender--aloevesta applied. SLight amt redness to scrotum, groins pink. Has blister to left big toe. Lower legs 3+ edema, aloe applied to feet/legs--has venous staining to lower legs as well. Abrasions/dry scabs to bilat arms. [place] removed from posterior neck/upper back, lower 1-2" of incision with redness--did apply 3 steristrips to this region. Hematest on 2nd bm was positive. Urine dribbling/incontinence continually--brief changed q 2 hrs and pt adjusted with position. Accucheck at hs 163, no sliding scale coverage needed. CPAP mask removed prior to midnight per pts' request, he would not reapply. Last bm 5-30, moderate amt incontinence x 5, oral intake 540 ml. Duragesic patch intact to rt upper chest. Legs elevated in bed. Follow up: Accuchecks ac/hs; adjust position and change brief q 2 hrs, monitor patency of PICC line, Hematest bm x 1 more. Patrice wraps to lower legs (on in a.m and off at hs)--no teds due to amt of leg/feet edema.
[2017-04-14 05:31] LABS: INR - (THERAPEUTIC) 2.04 (0.92-1.07); PROTIME 21.6 SECONDS (9.8-11.4)
[2017-04-14 05:43] LABS: ALK PHOS 85 IU/L (33-138); ANION GAP 11.4 (10.0-19.0); AST 11 IU/L (10-40); BLOOD UREA NITROGEN 21 mg/dL (6-24); CHLORIDE 109 mMol/L (96-110); CO2 26 mMol/L (22-32); CREATININE 1.1 mg/dL (0.6-1.3); ESTIMATED GFR (MDRD EQUATION) > 60; POTASSIUM 4.4 mMol/L (3.7-5.1); SODIUM 142 mMol/L (135-145); TOTAL PROTEIN 5.3 g/dL (6.0-8.4)
[2017-04-14 05:44] LABS: ALT < 10 IU/L (12-78); TOTAL BILIRUBIN 0.2 mg/dL (0.0-1.5)
[2017-04-14 05:47] LABS: BASOPHIL % 0.2 %; EOSINOPHIL # 0.2 K/uL (0.0-0.5); EOSINOPHIL % 4.8 %; HEMATOCRIT 22.5 % (33.0-50.0); IMMATURE GRANULOCYTE % 0.8 %; LYMPHOCYTE # 1.2 K/uL (0.8-4.0); LYMPHOCYTE % 24.8 %; MCH 28.9 pg (27.0-34.0); MCHC 30.7 gm/dL (32.0-36.5); MCV 94.1 fl (83.0-98.0); MONOCYTE # 0.4 K/uL (0.0-1.0); MONOCYTE % 8.7 %; MPV 10.9 fl (9.4-12.4); NEUTROPHIL % 60.7 %; NRBC % 0 /100WBC (0-0.00); PLATELET COUNT 125 K/uL (150-450); RBC 2.39 M/uL (3.50-5.50); RDW-CV 16.5 % (11.9-14.6)
[2017-04-14 05:49] LABS: HEMOGLOBIN 6.9 g/dL (11.0-16.0)
--- NOTE | 2017-04-14 15:59 | NUR ---
Significant Event: Patient alert and oriented. Forgetful and hard of hearing. 2 assist with walker and gait belt. Incision to upper back has sutures that are intact. Fentanyl patch intact. PICC line intact with IV Vancomycin. Closed blister to left big toe. Wears CPAP at night. Hazardous medication precautions-=-takes oral Casodex. Has a small open area to coccyx. Area is tender. Scrotal and penile edema. Pitting edema to lower ankles and feet. Patrice wraps on during the day and off at night. Incontinent of bowel and bladder. Need to change/check brief every 2 hours because of this. Last hematest was done, all 3 were positive. Will call this to MD. Accuchecks with s/s insulin. OT shower today.
--- NOTE | 2017-04-15 04:55 | NUR ---
Significant Event:Transfers with 2 assist use of walker/gait belt. Pt does better with movements if he is allowed to do as much and go slowly like he prefers than if staff pulls/tugs on him. Post neck incision approx, steristrips x 3 to distal end over bony red prominence. Has redness to buttocks/anal region and scrotum--applied aloe with each brief change q 2 hrs due to urine incontinence. Does have small smears of soft brown formed stool, sometimes oozes renetta red-brown liquid. Refused dul supp. Former hematest x 3 have been positive. GI Consult Roberto to see--he has been notified. Accucheck 142 at hs, no sliding scale coverage.PICC intact with good blood return, blood draw for PT/INR this a.m. 3+ edema to feet/ankles, 2-3+ to lower legs with venous staining, aloe applied to legs/feet--has small blister to left great toe and callous to ball of left foot. Soreness to neck/shoulders/back, rated at 3 that increases to 5 with movement, on scheduled Dora. Discolored red splotch to posterior rt lower thigh above knee joint, skin intact. Wears cpap at night for approx 1 hr only. Follow up:Accuchecks ac/hs. Position/brief changes q 2 hrs. Patrice wraps to lower legs/feet, no teds--elevate legs as much as possible. GI consult Roberto to see today.
[2017-04-15 06:02] LABS: INR - (THERAPEUTIC) 1.79 (0.92-1.07); PROTIME 18.9 SECONDS (9.8-11.4)
--- NOTE | 2017-04-15 13:27 | NUR ---
A-SCREENED D/T LOS; NEW ADMIT TO GIRP ADMIT WT TO GIRP: 82.3 KG. CBW: 82.3 KG. HT: 70 IN. BMI:26.0 GI CONSULT TODAY FOR (+)HEMATEST. 3+ EDEMA TO FEET/ANKLES AND 2-3+ EDEMA TO LOWER LEGS. SMALL OA TO COCCYX LABS: NA 142, K+ 4.4, GLU 100, BUN 21, HOOK AND EYE SEWING MACHINE OPERATOR 1.1, ALB 2.0, CRP 3.55, PREALB (04/11) 13.0 MEDS: NORCO, DURAGESIC, FEOSOL, LASIX, MVI, PROTONIX, ZOLOFT, MAG-OX, ZESTRIL, SINEMET, PRN BOWEL MEDS, LEVAQUIN DIET: MECHANICAL SOFT W/CHOCOLATE ENSURE ENLIVE BID. PO INTAKE REF-100%; AVG SINCE ADMIT TO GIRP IS 70%. VISITED W/PT RE: ENSURE ENLIVE AND PT STATES HE LIKES THEM. DISCUSSED INCREASING FROM BID TO TID; PT DECLINED USES WEIGHTED SILVERWARE WITH ALL MEALS EST NUTR NEEDS: 0815-6519 KCALS (25-30 KCALS/KG) 82-92 GM PROTEIN (1.0-1.1 GM/KG) 1 ML FLUID/KCAL D-AT NUTRITION RISK W/DECREASED ORAL INTAKE R/T POOR APPETITE AT TIMES AEB INTAKE RECORDS, PT REPORT. I-CONTINUE HANK. ENSURE ENLIVE BID AT B/D M/E-GOAL: PO INTAKE >/=75% BY DISCHARGE 1)F/U PO INTAKE, SUPPLEMENT, LABS, WT, AND POC IN 4-5 DAYS 2)ASSIST NEEDED
--- NOTE | 2017-04-15 19:51 | NUR ---
Significant Event: PT HAS PATENT PICC LINE IN L)UPPER ARM. PT RECEIVED 1 UNIT OF BLOOD TODAY, NO PROBLEMS NOTED. PT INC OF URINE, CONSTANTLY DRIPS. PT HAS A LOT OF SWELLING TO PENIS AND LEGS. PT HAS A DURALGESIC PATCH TO R)CHEST. ACCUCHECKS WERE 141, 182, 175, NO SLIDING SCALE NEEDED. PT HAD A COUPLE SMALL BMS, WITH A SMALL AMOUNT OF BLOOD NOTED ON THE STOOL. PT C/O PAIN IN HIS BACK WITH MOVEMENT, RECEIVED SCHEDULED NORCO WITH RELIEF NOTED. PT ON IV VANCO, INFUSED WITH NO PROBLEMS. PT HAS SCABBED INCISION TO UPPER BACK, 1 STERI STRIP INTACT OTHER 2 ARE FALLING OFF. Follow up: CALL UROLOGIST TO LOOK AT THE CIRCUMCISION SITE. CHECK LABS.
--- NOTE | 2017-04-16 04:22 | NUR ---
Significant Event:A/O. Some forgetfulness occasisonally. 1-2 assist with walker and gaitbelt. PICC to upper Left arm, flushes and aspirates well. Vanco run prior to start of shift. [place] 2 tabs scheduled Q6H. Neck/upper back incision well approximated and closed, steri strips coming loose. Incontinent r/t to continuous dribbling. Penis edematous, very red where sutures were. Frequent stooling. Buttock crease red, aloe vesta applied with cares. Turn Q2H. CPAP on part of the night. Room air during the day. ACHS accuchecks, no sliding scale required at HS for 160 glucose. Scab to left great toe from blister that opened. Trell light in reach. Bed alarm on. Follow up:BETHANY wraps to BLE toes to mid thigh for edema reduction. ACHS accuchecks. Toileting and brief change Q2H.
[2017-04-16 05:51] LABS: ALBUMIN 2.1 gm/dL (3.5-5.0); ALK PHOS 87 IU/L (33-138); ANION GAP 11.5 (10.0-19.0); AST 16 IU/L (10-40); BLOOD UREA NITROGEN 26 mg/dL (6-24); CALCIUM 7.8 mg/dL (8.5-10.5); CHLORIDE 108 mMol/L (96-110); CO2 26 mMol/L (22-32); CREATININE 1.2 mg/dL (0.6-1.3); ESTIMATED GFR (MDRD EQUATION) 57; POTASSIUM 4.5 mMol/L (3.7-5.1); SODIUM 141 mMol/L (135-145); TOTAL PROTEIN 5.5 g/dL (6.0-8.4)
[2017-04-16 05:52] LABS: ALT < 10 IU/L (12-78); TOTAL BILIRUBIN 0.3 mg/dL (0.0-1.5)
[2017-04-16 06:40] LABS: BASOPHIL % 0.2 %; EOSINOPHIL # 0.2 K/uL (0.0-0.5); EOSINOPHIL % 5.2 %; HEMATOCRIT 24.9 % (33.0-50.0); IMMATURE GRANULOCYTE # 0.1 K/uL (0.0-0.3); IMMATURE GRANULOCYTE % 1.1 %; LYMPHOCYTE # 1.1 K/uL (0.8-4.0); LYMPHOCYTE % 25.2 %; MCH 29.3 pg (27.0-34.0); MCHC 31.7 gm/dL (32.0-36.5); MCV 92.2 fl (83.0-98.0); MONOCYTE # 0.5 K/uL (0.0-1.0); MPV 11.4 fl (9.4-12.4); NEUTROPHIL # (ANC) 2.5 K/uL (1.4-9.0); NEUTROPHIL % 56.3 %; NRBC % 0 /100WBC (0-0.00); PLATELET COUNT 131 K/uL (150-450); RDW-CV 17.1 % (11.9-14.6); WBC 4.4 K/uL (4.0-11.0)
[2017-04-16 06:42] LABS: HEMOGLOBIN 7.9 g/dL (11.0-16.0)
--- NOTE | 2017-04-16 13:42 | NUR ---
D: TR progress note for 04/16/17. I: Pt seen for 2 units at 1305 for community integration skills building, functional transfers, and safety awareness. R: Pt seen for functional skills building working on mobility, safety, endurance and functional transfers in anticipation for discharge back into community. Pt given verbal instructions on proper technique, transferred sit > stand from WC CGA, ambulated with walker 4 feet to/from vehicle CGA and transferred into vehicle mod assist for BLE and out min assist for management of LE with seat surface adapted using trash bag to ease task. Pt needed verbal cues for hand placement and to maintain spinal precautions, tolerated ride with C/o pain and discomfort when going over bumps but pt had C/o major pain prior to session beginning. P: Will continue to see to address goals and plan of care.
--- NOTE | 2017-04-16 15:38 | NUR ---
Significant Event: pt up in room to BR and w/c with walker, 1-2 assist, alice. fair. pt continues to c/o back pain, 2 norco at 1203, duragesic patch to left upper arm. Standing weight today 79.0. Urine continually leaking from penis. area very moist and concern with healing process. Dr Bonner notified this afternoon, he order for catheter to be placed and pt very strongly refused for catheter placement. Pt angry about leaking urine, nurse discussed risks of healing properly, infection etc. but pt continued to refuse. Skin in between buttocks reddened and excoriated, bleeding at times. Black stool continues to oose from rectum. Areas kept clean and aloe applied to area with repositioning and in between therapy session. Accuchecks 120,147. Pt cooperative with cares. Follow up: activity, safety, maintain skin integrity, skin cares. Keep dry with brief changes. Aloe to coccyx. Continue standing wght every am.
--- NOTE | 2017-04-17 04:22 | NUR ---
Significant Event:Alert and oriented. 1-2 assist with walker and gaitbelt. PICC upper left arm aspirates and flushes well. Vanco infused at 2100. Surgical incision to upper back, healing 1 steri strip left. Distal end bright pink. Penis red and swollen, according to it is normal. Aloe with all cares scrotum and creases red. Change brief Q2H r/t constant dribbling. Buttock and crease red and excoriated. Aloe applied with cares. Some seepage from rectum. Fentanyl to Left shoulder. Patrice wraps to BLE during day. Left great toe scabbed from opened blister. [place] scheduled. Standing weight in the mornings. ACHS accuchecks. Follow up:Maintain skin integrity. Change Q2H. Alarms. Patrice wraps.
--- NOTE | 2017-04-17 19:42 | NUR ---
Significant Event:Pt alert and orientated x 3. 1-2 assist with a walker and gait belt. PICC uppler left arm patent and aspirates blood, flushes well. Vanco to be given next shift. Back incision healing and intact, monitor distal end slt redness. Penis red and swollen, reports normal for pt. Monitor skin integrity, good groin and buttock skin care, after every void. Maintains constant dribbling, check and change approx. every 2 hours, some excoriation remains crease of groin. Fentenyl remains on left shoulder. Patrice WRaps on bilateral lower legs during the day, off @ noc. Watch leg pumps on on to tight. Continue to monitor left great toe scab. [place] scheduled for pain every 6 hours. Standing wt in am. ACHS accuchecks. 1500 pt assisted to BR 1 assist, steady on feet, while standing @ toilet was assisting to pull pajamas down, pt lost balance, turned to the right, could not regain balance, and slowly lowered pt to the floor to knees, pt caught left forearm on trash can causing skin tear. Applied steri strips, gauze and wrapped arm for protection. Dr Cabrera updated, have called son several times and has not answered, can not leave message to call back due to son eugenie has no answerting addressing machine operator. Pt has had no other cmplaints of discomfort, assisted to stand with 2 assist. Pt has been to the toilet, and then to bed transfered well, with no complaints of discomfort. Called joe Montemayor again @ 1999 while completeing report, he answered his phone and he was updated. Follow up:Fall @ risk, accuchecks, pain control, maintain skin integrity, change Q 2 hours, alarms on, Patrice wraps on day, off noc. standing wt every am.
--- NOTE | 2017-04-18 03:48 | NUR ---
Significant Event: Patient is alert and oriented. VSS. 1-2 assist with GB/walker. Gait is slow. Patient has edema to legs feet and torso. Patrice wraps to lower legs during the day off at night. Has c/o of back pain, incision to his upper midback distal end raised and pink. Has scheduled [place] q 6 hrs. Patient constantly dribbles urine needs frequent brief changes and skin care with Aloe. Turn q 2hrs. Circumcision sutures are out and healing well. Patient up last evening to have a stool but still smears t/o the night. PICC to upper left arm patent flushes well with good blood return. Vanco infused last night at 2100. Patient has C pap but removes it after RT put it on him refuses to wear it. Patient requests to assist with turns during cares due to pain. Has no trouble turning, just alittle slow. Alarm for safety do not leave alone in BR. Follow up:
--- NOTE | 2017-04-18 11:48 | NUR ---
[facility] Case Management Prefunctioning and Psycho-Social Initial Assessment for 04/10/17 and Case Conference Note for 04/13/17 D: Initial Downstream Biomanufacturing TechnicianPreparing Box Tender and Case Conference Note. I: Input from: patient, family, Dr. Dill, Dr. Cabrera, Keren Pleitez [facility] R: Reason for admission: 03/30/17, biopsy and culture T2 vetebrae-upper back pain, compression fracture thoracic vertebra, diskitis. On IV antibiotics. Admission Date to [facility]: 04/10/17 Admission Date to Hospital: 03/30/17 Prior level of functioning: patient reports independence with adl's at baseline. Prior living situation: one story house with basement. Financial resources/expectations: patient has Medicare and [employer]. Resources used: walk-in shower with grab bars, shower chair, tall toilet, walker Resources available: C, outpatient therapy, SNF, [facility]IDENT[facility], [facility], DME Family support available: kids Understands nature of health condition: yes Recognizes impact of health condition on lifestyle: yes Vocational/Educational: retired Behavior/Emotional needs: cues for safety. Monitor for signs and symptoms of depression and anxiety. Legal concerns: none. Discharge goal: home with support vs. SNF. Assessment: Bahman is an 87 year old man from [place], [place] admitted with osteomyelitis of back. He has support of his children. Team conference was held and team is concerned about all of the pain patient is experiencing. Team feels if pain continues, may need to look at SNF. Patient adamantly does not want to do this. Will follow. Orientation to the program and CM services completed with Bahman. Initial plan of care and estimated length of stay discussed, disclosure statement reviewed including patient assessment rights. P: Target date and individual goals established. Please see POC for details. For additional information please see Nursing Data Base, PT, OT, TR, Initial assessments to [facility].
--- NOTE | 2017-04-18 14:30 | NUR ---
Significant Event:NO changes in assessment. Left arm dressing remains dry and intact, not changed as of this time. Pt alert and orientated x 3. 1-2 assist with walker/gait belt or wheel chair. Pt has been steady gait, slow, when walks to the BR. Asked pt today if he knew what made him loose his balance yesterday while he was standing in front of the toilet. He reported all he remembered was his pajama bottoms were down to his thighs, and not sure what made him start to fall. Do good groin/buttock skin cares after to the BR, continues to dribble majoriety of the time, changed frequently. Patrice wraps on bilateral lower legs on during the day. [place] scheduled every 6 hours, requested more for pain this am, tried Valium, pt not sure if it made any difference. No new complaints of discomfort voiced, pt continues to have pain when moved due to arthritis. Son Jayson here to visit this afternoon. Pt has been pleasant and cooperative with plan of care. Follow up:PICC line upper left arm, back incision healing and intact, monitor lower part of incision, slt redness. Fentenyl patch on left shoulder. Monitor left forearm skin tear.
--- NOTE | 2017-04-19 02:18 | NUR ---
Significant Event: Patient is alert and oriented. VSS. Up 1-2 assist with GB/Walker. Gait is slow and can be unsteady. Dribbles urine constantly so patient needs frequent brief changes and skin cares. Needs repositioned q 2 hrs. Patient has pitting edema to his leghs and torso. Incision on his upper mid back is raised and red on the distal end. Circumcision looks good surtures are out. Had a fall during the weekend and now has a lg skin tear with steri strips covered with Nesporine, vasoline gauze and gauze wrap. Dressing changed last night. May need to have WOC look at it, Oneyda did order the Neosporin. Wears a Cpap during the night about half the time does not like it. Has scheduled [place] q 6 hrs and still c/o of pain. PIC line to upper left arm fluswhes well with good blood return. Vanco q HS, trough to be drawn at 2000 prior to his 2100 dose. Do not leave alone in BR alarm for safety. Follow up: Vanco trough 04/19/17 at 2000. Alarm for safety. Skin cares.
--- NOTE | 2017-04-19 04:15 | NUR ---
Significant Event:Patient is alert and oriented, VSS. Up 1-2 assist with GB/Walker. Gait is slow and can be unsteady. Patient c/o of back pain has scheduled [place] q 6 h. Has pitting edema to his torso and legs. Wears brent wraps to his leg during the day off at night. PICC to upper left arm flushes well with good blood return. Will have labs today. Gets Vanco infusions at HS will need a trough drawn tonight at 1999 prior to his Vanco at 2100. Accu checks AC&HS last night was 212. 2 units of Novalog given. Patient dribbles urine constantly need frequent brief changes and skin care. Is repositioned q 2 hrs. Had a fall Wednesday in the bathroom. Skin tear to his left arm with Steri strips covered with vasaline gauze and gauze wrap. Dressing changed last night Neosporin applied per Dr Rodas order. Incision to patient back is raised and red on the distal end. Fentanyl patch to his left arm. Is to wear a C Pap at night but takes it off frequently. Do not leave alone in the BR alarm for safety. Follow up:[place] tonight at 1999.
[2017-04-19 05:36] LABS: INR - (THERAPEUTIC) 3.19 (0.92-1.07); PROTIME 33.9 SECONDS (9.8-11.4)
[2017-04-19 05:37] LABS: ALBUMIN 2.1 gm/dL (3.5-5.0); ALK PHOS 91 IU/L (33-138); ANION GAP 9.1 (10.0-19.0); AST 14 IU/L (10-40); BLOOD UREA NITROGEN 22 mg/dL (6-24); CHLORIDE 106 mMol/L (96-110); CO2 29 mMol/L (22-32); CREATININE 1.2 mg/dL (0.6-1.3); ESTIMATED GFR (MDRD EQUATION) 57; POTASSIUM 4.1 mMol/L (3.7-5.1); SODIUM 140 mMol/L (135-145); TOTAL BILIRUBIN 0.3 mg/dL (0.0-1.5); TOTAL PROTEIN 5.6 g/dL (6.0-8.4)
[2017-04-19 05:44] LABS: ALT < 10 IU/L (12-78)
[2017-04-19 06:23] LABS: BASOPHIL % 0.2 %; EOSINOPHIL # 0.2 K/uL (0.0-0.5); EOSINOPHIL % 3.3 %; HEMATOCRIT 25.4 % (33.0-50.0); IMMATURE GRANULOCYTE % 0.6 %; LYMPHOCYTE # 1.3 K/uL (0.8-4.0); LYMPHOCYTE % 25.7 %; MCH 28.8 pg (27.0-34.0); MCHC 31.1 gm/dL (32.0-36.5); MCV 92.7 fl (83.0-98.0); MONOCYTE # 0.6 K/uL (0.0-1.0); MONOCYTE % 12.6 %; MPV 11.3 fl (9.4-12.4); NEUTROPHIL # (ANC) 2.8 K/uL (1.4-9.0); NEUTROPHIL % 57.6 %; NRBC % 0 /100WBC (0-0.00); PLATELET COUNT 137 K/uL (150-450); RBC 2.74 M/uL (3.50-5.50); RDW-CV 16.2 % (11.9-14.6); WBC 4.9 K/uL (4.0-11.0)
[2017-04-19 06:28] LABS: HEMOGLOBIN 7.9 g/dL (11.0-16.0)
--- NOTE | 2017-04-19 10:35 | NUR ---
A-NUTRITION F/U CBW (STANDING SCALE): 76.5 KG. ADMIT WT TO GIRP (WHEELCHAIR SCALE): 82.3 KG PITTING EDEMA TO TORSO AND LEGS;ON LASIX LABS: NA 140, K+ 4.1, GLU 100, BUN 22, RIG BUILDER HELPER 1.2, ALB 2.1, PREALB 16.0; UP FROM 13.0. CRP 2.57; DOWN FROM 3.55 MEDS: VANCOMYCIN DIET RX: REGULAR W/HANK. ENSURE ENLIVE BID. PO INTAKE IS BITES-100%; AVG IS 52%. THIS IS DOWN FROM LAST F/U. WEIGHTED SILVERWARE AT EACH MEAL. EST NUTR NEEDS: 0216-0638 KCALS AND 82-92 GM PROTEIN D-AT NUTRITION RISK W/INDEQUATE INTAKE OF NUTRIENTS R/T POOR APPETITE AEB INTAKE RECORDS. I-1)ENCOURAGE PT TO DRINK CHOCOLATE ENSURE ENLIVE 2)START HANK. MAGIC CUP BID TO PROVIDE ADDITIONAL NUTRIENTS M/E-GOAL: PO INTAKE >/=65% BY NEXT F/U 1)F/U PO INTAKE, SUPPLEMENT, AND POC IN 3-5 DAYS 2)ASSIST NEEDED
--- NOTE | 2017-04-19 19:10 | NUR ---
Significant Event: Pt on scheduled pain pills, continues to have pain in back with movement, reports that the scheduled meds do help take the edge off. Pt is inc of urine constantly. Brief needs changed often and moisture barrier placed with each change. Pt has red bottom and it is very tender to wipe. Pt has a duralgesic patch intact to r)chest. 2 lidocaine patches to his back on both sides of his incision. Pt has a patent PICC in L)upper arm. Accuchecks were 131, 172, 201. Pt able to voice needs. Able to stand/ambulate with min-contact guard assist, just requires extra time. Follow up:
--- NOTE | 2017-04-20 05:16 | NUR ---
Significant Event:PICC to left upper arm, good blood return and flushes readily. Vanco trough at 23.1 from 1999, Vanco 2100 dose held. Skin tear to left arm redressed--has several steristrips over injury with old bloody drainage, scant new drainage while trying to redress--sent WOC consult on care/drsgs to be used to area. Lido patches x 2 removed at 2129. Upper back/neck incision approx, has one steristrip and lower 1-2" with redness. Wore cpap for only 1 hr and then removed. No bloody stools. Hs accucheck 152, no sliding scale given. Edema from legs to feet of varying degrees of 1-3+ but is better than last week. Has scheduled [place] q 6 hrs and usually is rated at 4 or less. Last bm on , po intake 465 ml, 5 incontinent mod-large voidings. ALoe applied to reddened rt buttock, anal area, and scrotum--areas improving. Turned q 2-3 hrs. Follow up:Needs standing weight at 0800. Lab will redraw a Vanco level, pharmacy will adjust dose with new orders after the results are known. Will have serum creatinine and pt done by lab as well. Ac/hs accuchecks. Patrice wraps x 2 to bilat lower legs, no hose. Is due for PICC drsg change today.
[2017-04-20 06:47] LABS: INR - (THERAPEUTIC) 3.21 (0.92-1.07); PROTIME 34.1 SECONDS (9.8-11.4)
[2017-04-20 07:18] LABS: CREATININE 1.2 mg/dL (0.6-1.3)
--- NOTE | 2017-04-20 14:14 | NUR ---
Significant Event: Up with 1A walker and gait belt. Takes scheduled [place] for pain. 2 lidocaine patches to upper back. PICC to L) upper extremity. Accuchecks ACHS. 114, 196 this shift. Incontinent of bowel and bladder. Constant dribbling so needs changed often. Redness to buttocks. Moisture barriere applied. Cooperative with cares. Uses call light appropriately. [address] to incision to upper back/neck. Follow up:
--- NOTE | 2017-04-20 14:25 | NUR ---
D: TR progress note for 04/20/17. I: Pt seen for 2 units at 1100 for community integration skills building, safety awareness and education. R: Pt seen for functional skills building working on safety awareness in community setting in anticipation for community re-entry with family. Pt seen up in recliner due to C/o back pain and fatigue. Education and information done on safety in community setting using flashcards to assist with identification of ways to provide solutions to possible problems for community re-entry, to increase confidence and to help eliminate risks of falls. Education and review done on energy conservation in community setting and safety. P: Will continue to see to address goals and plan of care.
[2017-04-21 05:29] LABS: PROTIME 26.6 SECONDS (9.8-11.4)
[2017-04-21 05:34] LABS: CREATININE 1.1 mg/dL (0.6-1.3); ESTIMATED GFR (MDRD EQUATION) > 60
[2017-04-21 05:37] LABS: INR - (THERAPEUTIC) 2.51 (0.92-1.07)
--- NOTE | 2017-04-21 05:54 | NUR ---
Alert and oriented. Up with one assist and walker with gait belt. On scheduled [employer] x 2 tabs at 11 and 5:00. 2 Lido patches and Fentanyl patch. Acc= 206. Steri-strips to incision on upper back. PICC to left forearm. Large BM at 0515 this morning.
--- NOTE | 2017-04-21 11:36 | NUR ---
TR progress note for 04/21/17. I: Pt seen for leisure education, stress/pain management, and coping strategies. R: Pt seen for functional skills building working on relaxation techniques and pain management, using animals for Animal Assisted Therapy. Pt seen up in recliner due to C/o pain. Pt independent with interaction, good bilateral scanning and bright affect when interacting with animal and volunteer. P: Will continue to see to address goals and plan of care.
--- NOTE | 2017-04-21 12:17 | NUR ---
Significant Event: Pt up in room with walker, 1 assist, sl unsteady, alice. well. Slow moving, but fairly steady. Pt continues to have constant dribble of urine. [place] done often, aloe applied t/o groins and buttocks. Redness to buttocks improving, area not as tender as it had been. [place] 2 tabs last given at 1154. P.T. applied TENS unit to upper back left and right lateral of incision, pt reported some relief of pain. Lidocaine patches placed this am, pt reported minimal relief from these. Accuchecks 113,199. Pt cooperative with cares. Incision to upper back approx. some redness present at distal end of incision. Moderate BM today. Follow up: activity, skin integrity, pain management
--- NOTE | 2017-04-22 05:29 | NUR ---
Alert and oriented. Up with one assist, gaitbelt and walker. Had moderate soft BM already this am. Cont leaks urine, toilet every 2 hrs. On scheduled [place] for you at 11am and 5 pm. Recieved IV Vancomycin at 2100. Next dose in 36 hrs at 9am tomorrow. Labs to be drawn at 8 am prior. Takes pills 1-2 at a time with water. Msx=[id number] with no sliding scale needed.
[2017-04-22 05:36] LABS: PROTIME 20.7 SECONDS (9.8-11.4)
[2017-04-22 05:38] LABS: INR - (THERAPEUTIC) 1.96 (0.92-1.07)
--- NOTE | 2017-04-22 12:04 | NUR ---
A - NUTRITION F/U. NO NEW LABS. WT: 166# IS DOWN 15# FROM ADMIT WT; HOWEVER, PT ON LASIX AND HAD A REDUCTION IN EDMEA. 1+ BUE AND 1-2+ BLE EDEMA REMAINS. DIET: REGULAR W/ ENSURE BID AND MAGIC CUP BID. INTAKE 25-100%; AVERAGE INTAKE UP TO 65%. D - AT RISK W/ INADEQUATE INTAKE AT TIMES R/T DECREASED APPETITE AEB INTAKE RECORD. I - GOAL: 50-75% ORAL INTAKE. M/E - WILL F/U IN 5-7 DAYS.
--- NOTE | 2017-04-22 14:54 | NUR ---
D: Camera Prototyping Engineer Team Conference Follow up for 04/20/17 and Discharge Note for 04/23/17 I: Input from patient/family R: Met with: patient, family, Dr. Dill, Dr. Cabrera, Nohemi Pleitez AIR TRAFFIC SUPERVISOR and Keren Pleitez CARRY OUT CLERK AND SHELF STOCKER Discussed rehab plan, patient progress, discharge plan and estimated length of stay of d/c planned on 04/23/17 to [facility] in [place], [place] for swing bed. Patient/Family Preference: patient is in agreement with this plan. Daughter plans to take patient. Anticipated discharge disposition: swing bed status at [facility]. Education completed: Education was completed with patient regarding length of stay, progress in therapy and d/c plan. Assessment/Recommendation: Team recommends d/c. P: Case Coordination: Riley is an 87 year old man from [place], [place]. He has good family support. Plan is for patient to d/c to [facility], swing bed status. Called Ilia RODRIGUEZ for doctor to doctor call. Daughter Ruthie to transport at 10 a.m.
--- NOTE | 2017-04-22 16:56 | NUR ---
Significant Event: Pt up with 1 assist, walker, slow movements but steady pace, alice. fair, grimaces with pain with movements. Daily weight of 75.3kg this am. [place] 2 tab due at 1700. accuchecks 120,212. Pt continues to have constant dribble of urine. Brief changes regularly, aloe applied. Inc. BM x 2, 1 continent stool, formed pasty stool. Vanco dose yesterday. PICC line to left upper arm. Incision to upper back, redness and raised to distal end of incision. Pt pleasant and cooperative with cares. Follow up: plan for transfer to [facility], pt's daughter will need to take pt to Dr Bonner office for visit prior to transfer. Pain management, safety.
--- NOTE | 2017-04-23 04:21 | NUR ---
Significant Event: Patient is alert and oriented. VSS. Up one assist with GB/Walker. Gait is slow but mostly steady. Incontinent of urine dribble constantly needs brief change at least every 2 hrs with good skin care and aloe. Has issues with pain has scheduled [place] q 6 hrs. Also has a Fentanyl patch and lidocaine patches. Therapy also put a Tens unit on his back for pain. PICC tp upper left arm flushes well. Blood draw this AM. Will have a Vanco infusion this AM. Plans for discharge today most of paper work is done. Accu checks AC&HS last night was 202. Follow up: Patient to see Dr Bonner in his office today after discharge then will be transfered to [place] for skilled care.
[2017-04-23 05:45] LABS: INR - (THERAPEUTIC) 1.65 (0.92-1.07); PROTIME 17.4 SECONDS (9.8-11.4)
[2017-04-23 05:56] LABS: CREATININE 1.8 mg/dL (0.6-1.3)
--- NOTE | 2017-04-23 09:10 | NUR ---
PATIENT ALERT AND ORIENTED X3. FORGETFUL AT TIMES, ALARMS ON. VITALS STABLE ON ROOM AIR (CPAP AT NIGHT IF PATIENT WILL ALLOW). VITALS CURRENTLY 16 RR, HR 74, 128/72, 98.2, 95% ON RA. PICC TO LEFT UPPER ARM INTACT, GOOD BLOOD RETURN AND FLUSHES WELL WITHOUT ISSUE. 28 CM EXTERNAL LENGTH TO PICC. CIRCUMCISION SITE OPEN TO AIR, SUTURES OUT, RED, PATIENT INCONTINENT OF URINE AND NEEDS TO BE CLEANED FREQUENTLY. SCROTUM AND BACKSIDE ALSO RED. SKIN TEAR TO RT ELBOW AND LEFT FOREARM HEALING. LEFT GREAT TOE HAS SCAB. VENOUS STAINING TO LOWER LEGS, GENERALIZED SCABBING. BETHANY BANDAGES TO LEGS FOR EDEMA. FELL ON 04/17. INCONTINENT OF BOWEL AND BLADDER AT TIMES BUT CAN ALSO TOILET ON COMMAND. SOB WITH ACTIVITY. UP 1 ASSIST, WALKER, GAIT BELT. NEEDS EXTRA TIME FOR AMBULATION. HAZARDOUS DRUG PRECAUTIONS. HAS BEEN RECEIVING IV VANCOMYCIN BUT DID NOT RECEIVE TODAY'S DOSE BASED ON THE TROUGH LEVEL. ALSO ON IV LEVAQUIN. +1 EDEMA TO LOWER LEGS. +1 PULSES TO LOWER LEGS. DAUGHTER HER TO TRANSFER TO OFFICE FIRST AND THEN TO [facility].
== END 2017-04-23 10:28 | disposition swing bed (61) | DRG 552 ==
LOC: GIRP 11:44
PROVIDERS: Internal Medicine; Nurse Practitioner Family; ADMIT Physical Medicine & Rehabilitation
PROC: F08Z4ZZ Home Management Treatment (ICD-10-PCS; 2017-04-10)
PROC: F07L6ZZ Therapeutic Exercise Treatment of Musculoskeletal System - Lower Back / Lower Extremity (ICD-10-PCS; 2017-04-10)
PROC: F07Z9ZZ Gait Training/Functional Ambulation Treatment (ICD-10-PCS; 2017-04-10)
PROC: 30233N1 Transfusion of Nonautologous Red Blood Cells into Peripheral Vein, Percutaneous Approach (ICD-10-PCS; principal; 2017-04-15)
DX: M46.44 Discitis, unspecified, thoracic region (principal); E44.0 Moderate protein-calorie malnutrition; G20 Parkinson's disease; E11.22 Type 2 diabetes mellitus with diabetic chronic kidney disease; I48.0 Paroxysmal atrial fibrillation; E83.42 Hypomagnesemia; I12.9 Hypertensive chronic kidney disease with stage 1 through stage 4 chronic kidney disease, or unspecified chronic kidney disease; F32.9 Major depressive disorder, single episode, unspecified; D49.89 Neoplasm of unspecified behavior of other specified sites; R26.9 Unspecified abnormalities of gait and mobility; K21.9 Gastro-esophageal reflux disease without esophagitis; Z85.46 Personal history of malignant neoplasm of prostate; Z92.3 Personal history of irradiation; Z87.891 Personal history of nicotine dependence; Z86.718 Personal history of other venous thrombosis and embolism; Z79.01 Long term (current) use of anticoagulants; M19.90 Unspecified osteoarthritis, unspecified site; E78.5 Hyperlipidemia, unspecified; Z79.4 Long term (current) use of insulin; R53.1 Weakness; H91.90 Unspecified hearing loss, unspecified ear; Z87.440 Personal history of urinary (tract) infections; Z66 Do not resuscitate; R32 Unspecified urinary incontinence; G47.33 Obstructive sleep apnea (adult) (pediatric); N18.9 Chronic kidney disease, unspecified; Z68.26 Body mass index [BMI] 26.0-26.9, adult; R19.5 Other fecal abnormalities; D63.1 Anemia in chronic kidney disease; I48.2 Chronic atrial fibrillation; R79.1 Abnormal coagulation profile; N40.0 Benign prostatic hyperplasia without lower urinary tract symptoms
CPT/HCPCS: J2997; J3370; J7040; J7050; P9016